=== PATIENT | male | born 1985 | race Hispanic/Latino ===

== ENCOUNTER 2017-04-16 19:52 | Inpatient (IN) | payer OTHER ==
[~2017-04-16] VITALS: Ht 165.1 cm; Wt 81.3 kg
[2017-04-16 19:57] VITALS: BP 152/114; PULSE 139; RESP 18; O2SAT 98
[2017-04-16] MEDS ORDERED: 0.9% Sodium Chloride 1,000 ML IV ONE (23:36)
--- NOTE | 2017-04-16 23:54 | ED.REPORT ---
HPI-General Illness Date of Service Apr 16, 2017 ED Provider: Doc,Ed MD This is a 31-year-old Beninese-speaking male with no known past medical history who presented to the emergency department for left neck swelling. Swellings been going on for the last 3 days and has been growing in size and is painful. Patient notes associated headaches, sweating and fever. He denies any difficulty with breathing or swallowing. He does have pain with opening his mouth. He has not had anything like this in the past. Denies any history of MRSA. Swelling has not drained. He mentions he is up-to-date on her vaccinations. He does mention to taking some [place] antibiotics, which she is unfamiliar with the name for the last 2 days. He feels like that has helped with the swelling and pain. Nursing Notes Stated Complaint: LUMP ON LEFT CHECK Chief Complaint: General Complaint Nursing Notes Reviewed: Yes Allergies: Coded Allergies: No Known Allergies (Unverified Allergy, Unknown, 04/16/17) General Time Seen by MD: 22:45 Chief Complaint Other (Left neck swelling) Past Medical History Past Medical History none reported Past Surgical History none reported Smoking History Current Every Day Smoker Social History Alcohol Use: Denies alcohol use Drug Use: Denies drug use Ambulatory Status Independent Review of Systems Full Review of Systems Constitutional: Reports: Fever, Denies: Chills Ears / Nose / Throat: Denies: Earache bilateral, Hearing loss bilateral, Sinus problem, Sore throat, Throat pain, Throat swelling, Toothache Respiratory: Denies: Shortness of breath Cardiovascular: Denies: Chest pain GI: Denies: Abdominal pain Skin: Reports Diaphoresis Neurologic: Reports: Headache Complete sys rev & neg: except as marked. Physical Exam Vital Signs Vital Signs Date Time Temp Pulse Resp B/P Pulse Ox O2 Delivery O2 Flow Rate FiO2 04/17/17 03:28 36.9 104 20 147/96 98 Room Air 04/17/17 02:03 39.2 118 24 138/104 99 Room Air 04/16/17 19:57 37.4 139 18 152/114 98 Room Air Initial VS: Reviewed General/Constitutional: Well-developed, Well-nourished Head / Eyes: Atraumatic, Normocephalic ENT: Mucous membranes moist, Conjunctiva normal, No scleral icterus Neurologic: Alert, Oriented, Nonfocal Psychiatric: Mood/affect normal, Behavior normal, Normal thought content General/Constitutional: Awake, Alert, No acute distress, Cooperative ENT: Atraumatic, Airway patent, Mucous membranes moist, Pharynx NL, No peritonsillar abscess Dental / Gums: Negative: Gum swelling, Gum tenderness Trismus associated with left side Neck: No midline vertebral tend, Thyroid NL Soft Tissue Neck: Positive: Saliva gland swollen L..., Swelling present... Large lateral left swelling of neck appears to be parotid with significant tenderness to parotid and small palpable stone within it. Swelling is about 6 inches in diameter. Patient has decreased range of motion with turning head to the left. No submental or submandibular lymphadenopathy noted. Respiratory / Chest: Atraumatic, Breath sounds NL, Breath sounds = bilat, No respiratory distress Cardiovascular: Regular rhythm, Heart sounds NL, No murmurs Heart Rate / Rhythm: Positive: Tachycardia Abdomen: Atraumatic, Soft, Non-tender, No guarding Skin: Color NL, No rash, Warm Color / Condition: Positive: Diaphoresis present Interpretation & Diagnostics Soft tissue neck CT CONCLUSION: 3.6 cm complex cystic mass just beneath the left sternocleidomastoid muscle with extensive surrounding inflammation. I would be concerned that this represents possibly multiple abscesses. This appears separate from the parotid gland and the left submandibular gland. Lab Results Interpretation Result Diagram: 04/17/17 0017 04/17/17 0017 Test 04/17/17 00:17 White Blood Count 17.5th/mm3 (3.8-10.1) Red Blood Count 5.47mil/mm3 (4.40-5.80) Hemoglobin 15.9g/dL (13.8-17.2) Hematocrit 45.0% (41.0-50.0) Mean Corpuscular Volume 82.3fL (81-100) Mean Corpuscular Hemoglobin 29.1pg (27.0-35.0) Mean Corpuscular Hemoglobin Concent 35.3% (32.0-37.0) Red Cell Distribution Width 12.4% (12.3-15.4) Platelet Count 313bil/L (150-400) Neutrophils (%) (Auto) 81.2% (40-74) Lymphocytes (%) (Auto) 10.3% (14-46) Monocytes (%) (Auto) 7.7% (4-12) Eosinophils (%) (Auto) 0.2% (0-5) Basophils (%) (Auto) 0.3% (0-3) Sodium Level 136mEq/L (134-144) Potassium Level 4.2mEq/L (3.5-5.2) Chloride Level 96mEq/L (97-108) Carbon Dioxide Level 22mmol/L (18-29) Blood Urea Nitrogen 9mg/dL (6-20) Creatinine 0.55mg/dL (0.76-1.27) Estimat Glomerular Filtration Rate 186mL/min (>59) Glucose Level 235mg/dL (60-99) Calcium Level 10.1mg/dL (8.5-10.1) Total Bilirubin 0.5mg/dL (0.0-1.2) Aspartate Amino Transf (AST/SGOT) 35U/L (0-50) Alanine Aminotransferase (ALT/SGPT) 55U/L (0-44) Alkaline Phosphatase 120U/L (25-150) Total Protein 9.3g/dL (6.4-8.4) Albumin 4.3g/dL (3.4-5.0) Procalcitonin 0.07ng/mL (0.00-0.08) Hold [place] Top Tube Received (Received) Re-Eval/Medical Decision Med Decision/Clinical Course 31-year-old presents with a spontaneous eruption of a large abscess in the left neck, under and associated with the sternocleidomastoid. Denies IV drug use or any trauma to account for this. No obvious odontogenic source. Consulted with ENT will see him this morning for drainage. Begun with IV antibiotics and admitted to the medicine service. Airway intact at this point, with no swallowing difficulty or voiced difficulty or breathing difficulty, but he does have trismus. This is a 31-year-old male with no known past medical history who presents to the emergency department for left neck swelling. This been going on for 3 days has been increasing in size. Patient does note of having subjective fevers, headaches and diaphoresis. On exam patient does have trismus, significant left sided swelling of the neck, which appears to be associated with the parotid gland. A small stone is palpated within the left parotid with significant tenderness cause to the patient. He did develop a fever of 39.2 C while here. CBC is remarkable for a WBC of 17.5. Soft tissue neck CT shows 3.6 cm cystic mass under the left SCM. given the location of the abscess and patient being septic, this requires admission to the hospital. Discussed with ENT, Dr. Gallardo, who plans to see the patient in the morning. Blood cultures drawn. Patient was given 2L of normal saline, IV cefazolin and clindamycin and ibuprofen. Consultation #1: Referral / Consult Name: Eduardo Gallardo MD Consulted With: ENT Call Returned at: 03:25 Hot Mix Operator: Agrees with plan Note: Spoke with ENT who agreed to see patient in the morning. Consultation #2: Referral / Consult Name: Garrick Hassan MD Consulted With: Hospitalist Call Returned at: 03:53 Hot Mix Operator: Accepts admit Note: Discussed with Dr. Hassan who acceps admit Counseled Regarding: Diagnosis, Lab results, Need for admission Discharge & Departure Primary Impression: Neck abscess Disposition: ADMITTED TO HOSPITAL Discharge Condition All VS Reviewed: Yes Condition: Stable Referrals: NOPCP (PCP) Garrick Estrada DO Apr 16, 2017 23:08 Kartik Bean MD Apr 17, 2017 07:12
[2017-04-17] VITALS (15 sets, daily range): BP systolic 138–162; BP diastolic 92–109; PULSE 95–126; RESP 15–24; O2SAT 96–100
[2017-04-17 00:33] LABS: BASOPHILS % (AUTO) 0.3 % (0-3); EOSINOPHILS % (AUTO) 0.2 % (0-5); MONOCYTES % (AUTO) 7.7 % (4-12); Mean Corpuscular Hemoglobin 29.1 pg (27.0-35.0); Mean Corpuscular Volume 82.3 fL (81-100); NEUTROPHILS % (AUTO) 81.2 % (40-74); Platelet Count 313 bil/L (150-400)
[2017-04-17] MEDS ORDERED: 0.9% Sodium Chloride 1,000 ML IV ONE (02:10)
[2017-04-17] MEDS ORDERED: CeFAZolin Inj 2 GM in IV Premix 1 EACH IV ONE (02:20)
[2017-04-17] MEDS ORDERED: Clindamycin Inj 900 MG in IV Premix 1 EACH IV ONE (02:20)
[2017-04-17] MEDS ORDERED: 0.9% Sodium Chloride 1,000 ML IV SCH (03:58)
[2017-04-17] MEDS ORDERED: Lactated Ringer's 1,000 ML IV SCH ×2 (03:58→12:51)
[2017-04-17] MEDS ORDERED: Alum-Mag Hydrox-Simeth 30 mL Suspension PO PRN ×2 (04:00→12:20)
[2017-04-17] MEDS ORDERED: Ondansetron 2 mg/mL 2 mL Inj IVPUSH PRN ×3 (04:00→12:55)
[2017-04-17] MEDS ORDERED: Polyethylene Glycol (PEG) 17 Gm Powder PO PRN ×2 (04:00→12:20)
--- NOTE | 2017-04-17 06:07 | NUR ---
Admit note Pt arrived to unit at 0430 from ED via a stretcher. transfer out of stretch with SBA to room with steady gait. Alert, oriented, and able to make needs known. Pt was with his cousin upon arrival and gave consent for his cousin to be there with him in the room. Denies N/V/D, pain, resp distress and/or SOB. Pleasant and cooperative with care. No behavioral or safety issue noted. Left neck swollen intact with no skin tear or fluid draining in that area. pt NPO per orders. Care continues.
[2017-04-17] MEDS: Sodium Chloride LOK Flush 10 mL Syringe IVFLUSH SCH ×2 (07:55→18:00)
[2017-04-17] MEDS ORDERED: Piperacillin-Tazo 3.375 Gm Inj 3.375 GM in Dextrose 5% Minibag Plus 50 ML IV SCH (08:30)
--- NOTE | 2017-04-17 09:03 | DRSVH ---
PROCEDURE: CT NECK SOFT TISSUES WITH CONTRAST ([id number]) INDICATIONS: 31 year-old male with left neck swelling. TECHNIQUE: After the administration of intravenous contrast, 3.0 mm axial sections acquired from the sella to th e aortic arch. Additional oblique axial 3.0 mm sections acquired through the pharynx. 3 mm thick co mando reformats were generated. For radiation dose reduction, the following was used: automated exp osure control. COMPARISON: None. FINDINGS: Preliminary interpretation rendered by [facility]. Image quality: Excellent. Lymph nodes: On axial image 33, 3.9 x 3.5 x 3.5 cm solid and cystic mass lesion lies deep to the lef t sternocleidomastoid muscle, within station 2A of the left jugular chain lymph nodes. Several nearby left jugular chain homogeneously enhancing enlarged lymph nodes are also present, measuring up to 1. 3 cm short axis dimensions. Vessels: Visualized vasculature appears patent. Neck spaces: The oropharynx, nasopharynx, and pharynx demonstrate no mucosal lesions. There is asymm etric thickening of the left tonsillar pillar. The vocal cords, false vocal cords, pyriform sinuses, epiglottis, vallecula, and tongue base all appear normal. There is asymmetric inflammatory fat stra nding superficial to the left sternocleidomastoid muscle. Glands: The parotid and submandibular glands appear normal. Thyroid gland is normal in size and mor phology. Miscellaneous: Visualized brain and orbits appear normal. Lung apices appear clear. Superficial so ft tissues appear normal. Bones: No suspicious bony lesions. There is minimal left maxillary sinus mucosal thickening. Visuali zed mastoids appear clear. IMPRESSION: 1. 3.9 x 3.5 x 3.5 cm solid and cystic left neck mass lesion with significant surrounding inflammator y fat stranding, consistent with partially necrotic left jugular chain lymph node and developing absc ess. 2. Multiple additional enlarged nonnecrotic left jugular chain lymph nodes as well, presumably from i nfectious or inflammatory etiology. 3. Asymmetric enlargement of the left tonsillar pillar as well, without abscess formation. Dictated by: Cristino Bedoya M.D. on 04/17/2017 at 8:50 Approved by: Cristino Bedoya M.D. on 04/17/2017 at 9:01
[2017-04-17] MEDS: Clindamycin Inj 900 MG in IV Premix 1 EACH IV SCH ×2 (11:00→19:30)
--- NOTE | 2017-04-17 11:39 | NUR ---
Off Unit Patient off floor to PACU via stretcher. IV infusing.
--- NOTE | 2017-04-17 11:42 | PCM.HPANE ---
Patient Data Surgeon Admitting Provider:Garrick Hassan MD Attending Provider:Didier Marino Primary Care Physician:Myriam Other Provider: Reason for Visit Neck Abscess/Sepsis Ht/WT & BMI Height (Feet): 5 Height (Inches): 5 Weight (Kilograms): 75.000 Body Mass Index .00 Allergies Coded Allergies: No Known Allergies (Unverified Allergy, Unknown, 04/16/17) Past Anesthesia History Anesthesia History: Denies:: Abnormal Airway, Anesthesia Reactions, Difficult Intubation, Fam Anesthesia Reaction, Fam Malignant Hypertherm, Malignant Hyperthermia Diabetes History Hx Diabetes?: No MRSA MRSA: No Medications Hypertension Medication: No Home Meds Incl Beta Haja: No No Active Prescriptions or Reported Meds History History of ENT Problems?: No HEENT History: Positive for:: Dysphagia Denture Type: None Teeth Condition: Missing Teeth Other History/Comment L neck abscess, no stridor, no difficulty breathing, some difficulty now swallowing, some restricted mouth opening, CT scan with minimal airway effect. Hx of Heart Problems?: No Cardiovascular History: Denies:: AICD Abdominal Aortic Aneurism Atrial Fibrillation Cardiac Surgery Chest Pain Congestive Heart Failure Coronary Artery Disease Edema Heart Murmur Hypertension Irregular Heartbeat Pacemaker Peripheral Vascular Rheumatic Fever Thrombophlebitis Valvular Heart Disease Hx of Respiratory Problem?: No Respiratory History: Denies:: Asthma COPD Chest Surgery Cough Dyspnea Emphysema Hemoptysis Oxygen Administration Pneumonia Pulmonary Embolism Tuberculosis Use of C-PAP Machine Use of Inhalers / NEBS Hx Neurologic Problems?: No Neurological History: Denies:: Alzheimer's Disease CVA Dementia Dizziness Headaches Seizures Hx of GI Problems?: No Gastrointestinal History: Denies:: Cirrhosis Diverticulitis Gall Bladder Disease Gastroesphageal Reflux Gastrointestinal Bleeding Heartburn Hepatitis Hiatal Hernia Liver Disease Rectal Bleeding Hx of Problems?: No Genitourinary History: Denies:: HX of Hemodialysis Kidney Stones Urinary Tract Infection Male Hx: Denies:: Prostate Problems Scrotal Mass Testicular Surgery Skin History: Denies:: History Skin Disorders? Pressure Ulcers Hx Musculoskeletal Problems?: No Musculoskeletal History: Denies:: Back Injury Degenerative Joint Fibromyalgia Joint Replacement Musculoskeletal Trauma Myasthenia Gravis Osteoarthritis Rheumatoid Arthritis Systemic Lupus Hx of Psycho/Social Problems?: No Hx Surgeries?: Yes Other History/Comment [place] teeth Hx Any Other Health Problems?: No Other History: Denies:: Cancer Hospitalization History Blood Transfusions: Positive for:: Accept Blood Products? Denies:: Blood Transfuse Reaction Blood Transfusions Hx Diabetes: No Other Pertinent History: Had left [place] tooh removed six weeks ago Hx Alcohol Use: YesAlcoholic Drinks Per Day: depend on the mood, pt drinks up to six bottle of beer per reportHx Substance Use: No Smoking Status: Current Every Day Smoker Have You Smoked inLast 12 mo: YesApprox How Many Cigarettes/day: up to three singles per day Stop/Bang Treated for Sleep Apnea?: No Do You Have a CPAP Machine?: No S-Snoring: Do You Snore Loudly: No T-Tired: feel tired, fatigued: No O-Obsered: Observed not breath: No P-Blood Pressure: treated: No B- Body Mass Index > 35 kg/m2: No N- Neck Large Circumference: No G- Gender Male: Yes DUTCH Total Score: 1 DUTCH Risk Assessment: Low Risk, <3 Yes Risk Assessment Category Category 1A: Patient has history of documented sleep apnea, and HAS NOT received any narcotic, sedative or anesthesia administration during this stay. Category 1B: Patient has history of documented sleep apnea, and HAS received any narcotic , sedative or anesthesia administration during this stay Category 2: Patient has SUSPECTED Obstructive Sleep Apnea, and HAS received any narcotic , sedative or anesthesia administration during this stay. Category 3: Patient has SUSPECTED Obstructive Sleep Apnea and HAS NOT received narcotic, sedative or anesthesia administration during this stay. Category 4: Outpatient in Procedural Areas with known sleep apnea or who screen positive for High Risk via the STOP/BANG questionnaire. Exam Exam Vital Signs Vital Signs Date Time Temp Pulse Resp B/P Pulse Ox O2 Delivery O2 Flow Rate FiO2 04/17/17 08:51 36.9 98 18 153/101 98 04/17/17 04:30 36.7 95 17 143/92 98 Room Air 04/17/17 04:20 36.9 104 20 147/96 98 Room Air General Appearance: Alert, Oriented X3, Cooperative, No Acute Distress HEENT/AIRWAY: MP 3 Lungs: Clear to Auscultation, Normal Air Movement Heart: Exam Unremarkable, Regular Rate/Rhythm, Normal S1, Normal S2 Additional Information L neck mass effect, almost 3 finger breaths mouth opening, no stridor, cricoid palpable, not drooling handling secretions. Meds/Labs/Diagnostics Admission Meds Current Medications Sodium Chloride (Normal Saline) 1,000 ml @ 0 mls/hr Q0M ONCE IV Last administered on 04/17/17 00:20; Start 04/16/17 at 23:36; Stop 04/16/17 at 23:41; Status DC Ibuprofen 600 mg 600 mg ONCE ONCE PO Last administered on 04/17/17 02:14; Start 04/17/17 at 02:05; Stop 04/17/17 at 02:06; Status DC Sodium Chloride 1,000 ml @ 0 mls/hr Q0M ONCE IV Last administered on 04/17/17 02:14; Start 04/17/17 at 02:10; Stop 04/17/17 at 02:13; Status DC Cefazolin Sodium/ Dextrose 2 gm/ Premix 50 ml @ 100 mls/hr ONCE ONCE IV Last administered on 04/17/17 03:26; Start 04/17/17 at 02:20; Stop 04/17/17 at 02:49; Status DC Clindamycin Phosphate/ Dextrose 900 mg/ Premix 50 ml @ 100 mls/hr ONCE ONCE IV Last administered on 04/17/17 04:09; Start 04/17/17 at 02:20; Stop 04/17/17 at 02:49; Status DC Piperacillin Sod/ Tazobactam Sod 3.375 gm/Dextrose/ Water 50 ml @ 12.5 mls/hr Q8 IV Last administered on 04/17/17 08:28; Start 04/17/17 at 08:30 Lactated Ringer's (Lr) 1,000 ml @ 125 mls/hr Q8H IV Last administered on 04:56; Start 04/17/17 at 03:58 Labs Test 04/17/17 00:17 04/17/17 06:46 04/17/17 08:38 White Blood Count 17.5th/mm3 (3.8-10.1) Red Blood Count 5.47mil/mm3 (4.40-5.80) Hemoglobin 15.9g/dL (13.8-17.2) Hematocrit 45.0% (41.0-50.0) Mean Corpuscular Volume 82.3fL (81-100) Mean Corpuscular Hemoglobin 29.1pg (27.0-35.0) Mean Corpuscular Hemoglobin Concent 35.3% (32.0-37.0) Red Cell Distribution Width 12.4% (12.3-15.4) Platelet Count 313bil/L (150-400) Neutrophils (%) (Auto) 81.2% (40-74) Lymphocytes (%) (Auto) 10.3% (14-46) Monocytes (%) (Auto) 7.7% (4-12) Eosinophils (%) (Auto) 0.2% (0-5) Basophils (%) (Auto) 0.3% (0-3) Sodium Level 136mEq/L (134-144) Potassium Level 4.2mEq/L (3.5-5.2) Chloride Level 96mEq/L (97-108) Carbon Dioxide Level 22mmol/L (18-29) Blood Urea Nitrogen 9mg/dL (6-20) Creatinine 0.55mg/dL (0.76-1.27) Estimat Glomerular Filtration Rate 186mL/min (>59) Glucose Level 235mg/dL (60-99) Calcium Level 10.1mg/dL (8.5-10.1) Total Bilirubin 0.5mg/dL (0.0-1.2) Aspartate Amino Transf (AST/SGOT) 35U/L (0-50) Alanine Aminotransferase (ALT/SGPT) 55U/L (0-44) Alkaline Phosphatase 120U/L (25-150) Total Protein 9.3g/dL (6.4-8.4) Albumin 4.3g/dL (3.4-5.0) Procalcitonin 0.07ng/mL (0.00-0.08) Hold [place] Top Tube Received (Received) Lactic Acid Level 1.3mmol/L (0.4-2.0) Plan Impression Patient chart reviewed, patient interviewed and anesthestic plan with risks, benefits, and alternatives discussed, and informed consent obtained. ASA Physical Status: ASA2 Plus Emergency Anesthetic Support Modalities: [place] Scope, Fiberoptic Scope Bene/Risks/Altern/Consents: Yes HP Complete Prior to Induction: Yes Chema Verdugo MD Apr 17, 2017 11:42
[2017-04-17] MEDS ORDERED: Lactated Ringer's 1,000 ML IV ONE ×2 (11:56→12:42)
[2017-04-17] MEDS ORDERED: Lidocaine 1%-Epi 1:100,000 20 mL Inj INFILTRATE ONE (12:08)
[2017-04-17] MEDS ORDERED: Dextrose 5% 0.45% NaCl 1,000 ML IV SCH (12:20)
--- NOTE | 2017-04-17 12:33 | PCM.HPMED ---
Subjective Date of Service Apr 17, 2017 Primary Provider: Admitting Physician: Garrick Hassan MD Primary Care Physician: Myriam Attending Physician: Didier Marino Chief Complaint: left neck swelling and pain History of Present Illness: 31 year old Lithuanian-speaking male originally from [place] who denies any significant past medical history presents with about 4-5 days of left neck swelling and pain that has been acutely worse one day prior to presentation. He denies any trouble with breathing but feels that he is having more difficulty with swallowing since this morning. He reports pulling his left lower wisdom tooth about 6 weeks ago. Otherwise denies any recent ulcers, rash, sick contacts, travel, or exposure to rabbits, ticks or other wild animals. He does report some chills and fever but denies any night-sweats and denies any recent weight change. He says he is not sexually active. In the ED ENT was consulted and patient received a dose of Clindamycin and Cefazolin. Review of Systems: Constitutional: Negative, except as otherwise mentioned in the history above. Ophthalmologic: Negative, except as otherwise mentioned in the history above. Cardiovascular: Negative, except as otherwise mentioned in the history above. Respiratory: Negative, except as otherwise mentioned in the history above. Gastrointestinal: Negative, except as otherwise mentioned in the history above. Genitourinary: Negative, except as otherwise mentioned in the history above. Musculoskeletal: Negative, except as otherwise mentioned in the history above. Neurological: Negative, except as otherwise mentioned in the history above. Psychiatric: Negative, except as otherwise mentioned in the history above. Hematologic/Lymphatic: Negative, except as otherwise mentioned in the history above. Allergic/Immunologic: Negative, except as otherwise mentioned in the history above. Allergies Coded Allergies: No Known Allergies (Unverified Allergy, Unknown, 04/16/17) Home Medications None Exam Vital Signs & I/O Vital Sign- Last 8 Hours Date Time Temp Pulse Resp B/P Pulse Ox O2 Delivery O2 Flow Rate FiO2 04/17/17 08:51 36.9 98 18 153/101 98 Intake and Output- Last 8 Hour 04/17/17 Cumulative From/Thru 07:00 04/16/17 19:57 - 04/17/17 05:55 Intake Total 1143 ml 1143 ml Output Total 300 ml 300 ml Balance 843 ml 843 ml Intake Oral 0 ml 0 ml IV Total 1143 ml 1143 ml Output Urine Total 300 ml 300 ml # Bowel Movements 0 0 Lab & Micro Results Laboratory Tests Test 04/17/17 00:17 04/17/17 06:46 04/17/17 08:38 White Blood Count 17.5th/mm3 (3.8-10.1) Red Blood Count 5.47mil/mm3 (4.40-5.80) Hemoglobin 15.9g/dL (13.8-17.2) Hematocrit 45.0% (41.0-50.0) Mean Corpuscular Volume 82.3fL (81-100) Mean Corpuscular Hemoglobin 29.1pg (27.0-35.0) Mean Corpuscular Hemoglobin Concent 35.3% (32.0-37.0) Red Cell Distribution Width 12.4% (12.3-15.4) Platelet Count 313bil/L (150-400) Neutrophils (%) (Auto) 81.2% (40-74) Lymphocytes (%) (Auto) 10.3% (14-46) Monocytes (%) (Auto) 7.7% (4-12) Eosinophils (%) (Auto) 0.2% (0-5) Basophils (%) (Auto) 0.3% (0-3) Sodium Level 136mEq/L (134-144) Potassium Level 4.2mEq/L (3.5-5.2) Chloride Level 96mEq/L (97-108) Carbon Dioxide Level 22mmol/L (18-29) Blood Urea Nitrogen 9mg/dL (6-20) Creatinine 0.55mg/dL (0.76-1.27) Estimat Glomerular Filtration Rate 186mL/min (>59) Glucose Level 235mg/dL (60-99) Lactic Acid Level 2.1mmol/L (0.4-2.0) 1.2mmol/L (0.4-2.0) 1.3mmol/L (0.4-2.0) Calcium Level 10.1mg/dL (8.5-10.1) Total Bilirubin 0.5mg/dL (0.0-1.2) Aspartate Amino Transf (AST/SGOT) 35U/L (0-50) Alanine Aminotransferase (ALT/SGPT) 55U/L (0-44) Alkaline Phosphatase 120U/L (25-150) Total Protein 9.3g/dL (6.4-8.4) Albumin 4.3g/dL (3.4-5.0) Procalcitonin 0.07ng/mL (0.00-0.08) Hold Hoyos Top Tube Received (Received) Microbiology 04/17/17 Blood Culture, Received Pending Result Diagram: 04/17/171604/17/1716 PMH Denies any significant past medical history Family History Denies any family history of diabetes, heart disease, or cancer Social History Hx Alcohol Use: Yes (occassionally) Alcoholic Drinks Per Day: depend on the mood, pt drinks up to six bottle of beer per report Hx Substance Use: No Smoking Status: Current Every Day Smoker (2-3 cigarretts per day) Exam Vital Signs Vital Sign - Last Date Time Temp Pulse Resp B/P Pulse Ox O2 Delivery O2 Flow Rate FiO2 04/17/17 08:51 36.9 98 18 153/101 98 04/17/17 04:30 Room Air Intake and Output 04/16/17 04/16/17 04/17/17 Cumulative From/Thru 15:00 23:00 07:00 04/16/17 19:57 - 04/17/17 05:55 Intake Total 1143 ml 1143 ml Output Total 300 ml 300 ml Balance 843 ml 843 ml Intake Oral 0 ml 0 ml IV Total 1143 ml 1143 ml Output Urine Total 300 ml 300 ml # Bowel Movements 0 0 General: Alert, Oriented X3, Cooperative, No Acute Distress Head: Normal Eyes: PERRLA, EOMI, Scleral Anicteric Nose: Mucous Membr Moist/[place] Mouth: Mucous Membr Moist/[place] Neck: Supple, Tenderness, Other (signifiant swelling and tenderness on the left side of the neck) Chest & Lungs: Chest Wall Normal, Clear to auscultation & percussion Cardiovascular: Regular Rate/Rhythm Pulses: NL carotid, radial, femoral, DP, PT Abdomen: Non-tender, Non-distended, Normoactive bowel tones, Soft Extremities: No cyanosis/clubbing/edma bilat Skin: Other (no significant ulcer/rash) Neurological: Grossly Neurologically Intact, Cranial Nerves 2-12 Intact, Normal Speech Lab and Diagnostics Result Diagram: 04/17/171604/17/1716 X-Rays, CTs and MRIs Date of Service: 04/17/17 001 PROCEDURE: CT NECK SOFT TISSUES WITH CONTRAST ([id number]) IMPRESSION: 1. 3.9 x 3.5 x 3.5 cm solid and cystic left neck mass lesion with significant surrounding inflammatory fat stranding, consistent with partially necrotic left jugular chain lymph node and developing abscess. 2. Multiple additional enlarged nonnecrotic left jugular chain lymph nodes as well, presumably from infectious or inflammatory etiology. 3. Asymmetric enlargement of the left tonsillar pillar as well, without abscess formation. Dictated by: Cristino Bedoya M.D. on 04/17/2017 at 8:50 Approved by: Cristino Bedoya M.D. on 04/17/2017 at 9:01 Assessment & Plan 31 year generally healthy male who is post left lower wisdom tooth extraction about 6 weeks ago presents with somewhat acute onset of left neck swelling and tenderness with imaging suggestive of developing neck abscess # Acute left neck abscess, present on admission. Ongoing - Presumably as a complication of somewhat recent tooth extraction - Appreciate ENT consult. Await official recommendations but tentative plan seems to be for OR later today - Discussed with ID consult - Check MRSA screen and ASO titer - Followup pending cultures - IV Zosyn and Clinda for now per discussion with ID - Continue with supportive care including IVF and pain control with IV Morphine prn # Acute sepsis, present on admission - Met criteria with leukocytosis (17.5), Fever (39.2), Tachycardia (139) with source the neck abscess. - Continue with IVF and Abx as noted above # Acute mild lactic acidosis. present on admission - Resolved with IVF. - Followup Expected length of hospital stay is greater than 2 midnights and likely 2-4 days GI Prophylaxis: Not indicated VTE Prophylaxis: Sub-Q Heparin (Unfractionated) VTE Mechanical Devices: Intermittant Pneumatic CD Resuscitation Status: CPR: Attempt Resuscitation (discussed and verified with patient) Time spent 65 min Didier Marino Apr 17, 2017 12:33
[2017-04-17] MEDS ORDERED: Lactated Ringer's 500 ML IV PRN (12:51)
[2017-04-17] MEDS ORDERED: HYDROmorphone 1 mg/mL Inj IVPUSH PRN (12:55)
[2017-04-17] MEDS ORDERED: Phenylephrine 10,000 mCg/mL Inj IVPUSH PRN (12:55)
[2017-04-17] MEDS ORDERED: MetoCLOpramide 5 mg/mL 2 mL Inj IVPUSH PRN (12:55)
[2017-04-17] MEDS ORDERED: EPHEDrine Sulfate 50 mg/mL Inj IVPUSH PRN (12:55)
[2017-04-17] MEDS ORDERED: fentaNYL-PF 50 mCg/mL 2 mL Inj IVPUSH PRN (12:55)
--- NOTE | 2017-04-17 13:06 | OP ---
[address] [address] OPERATIVE REPORT PATIENT: IZA DEL CASTILLO : 1985 MR#: [id number] ADMIT: 04/17/2017 JOB ID: [id number] DATE OF SURGERY: SURGEON: Eduardo Gallardo MD PREOPERATIVE DIAGNOSIS(ES): Left deep neck abscess. POSTOPERATIVE DIAGNOSIS(ES): Left deep neck abscess. PROCEDURE: Incision and drainage. HISTORY AND INDICATIONS: A 31-year-old gentleman, dental extraction several weeks previously. Had left upper neck swelling and tenderness at the time. Over the last several days, has had progressive swelling, pain, trismus, and fever. Presented to the emergency department. CT scan showed a multiloculated deep neck abscess on the left. PROCEDURE AND FINDINGS: Patient was taken to the operating room, placed in supine position on the operating table. General endotracheal anesthesia induced. The head was turned to the right. The left neck was prepped and draped in sterile fashion. The planned incision site was injected with 2% lidocaine, 1:100,000 epinephrine. The incision was made over the lower portion of the prominent swelling, staying well below the angle of the mandible which is not palpable. Dissection continues through edematous subcutaneous fat and through the platysma. The anterior border of the sternocleidomastoid was identified and carefully dissected free of the surrounding edematous tissues. Then, with a very careful combination of blunt dissection and finger dissection, the dissection continues medially to the superior attachment of sternocleidomastoid and up onto the medial surface of the mandible, encountering multiple loculations of frankly purulent material. Cultures are taken. Once all the loculations are adequately opened, copious irrigation is undertaken with Betadine and saline. Quarter-inch Raymundo drains were then inserted, one deep to the SCM, the other deep to the mandible. These were secured to the skin with 3-0 nylon. The wound is loosely closed with interrupted 3-0 nylon suture. An absorbent dressing is applied. The patient is awakened and extubated in the operating room, and returned to the recovery room in a stable condition. ESTIMATED BLOOD LOSS: Less than 20 cc. PATHOLOGIC SPECIMENS: Cultures are sent.
--- NOTE | 2017-04-17 13:10 | HP ---
[address] [address] HISTORY AND PHYSICAL PATIENT: IZA DEL CASTILLO : 1985 MR#: [id number] ADMIT: 04/17/2017 JOB ID: [id number] HISTORY: The patient is a 31-year-old gentleman who several weeks ago he had an infected left maxillary molar extracted. At that time, he had some swelling in the left neck. Over the last several days, he has developed progressive pain, swelling, dysphagia, trismus and fevers; the swelling being mainly in the left upper neck. Presented to the emergency department, was scanned and noted to have a multiloculated abscess deep to the sternocleidomastoid muscle on the left side. PHYSICAL EXAMINATION: On examination in the hospital bed, the patient is awake, alert, quite uncomfortable. He has marked swelling over the left parotid mandible and upper neck area. He has moderate trismus. The ears and nose are unremarkable. Oropharyngeal examination shows no asymmetry and no edema of the palate. Again the neck examination shows markedly indurated painful left upper neck extending over the mandible. Chest is clear to auscultation and percussion. Cardiovascular exam is regular rate and rhythm without murmurs, gallops, rubs. ASSESSMENT: Multiloculated deep neck abscess left, probably related to infected dental tooth that has been extracted. PLAN: Discussed surgical drainage with the patient. He understands the risks of the procedure which include, but are not limited to anesthetic reaction, bleeding, infection and injury to the large blood vessels or nerves, resulting in , temporary or permanent disability. Understands the possible need for tracheotomy. His questions answered. He understands and chooses to proceed.
--- NOTE | 2017-04-17 13:18 | PCM.ANEP1 ---
Post Anesthesia PACU Phase 1 Assessment Vital Signs Vital Signs Date Time Temp Pulse Resp B/P Pulse Ox O2 Delivery O2 Flow Rate FiO2 04/17/17 08:51 36.9 98 18 153/101 98 Anesthetic Administered: GA Level of Alertness: Awake, talking Pain: Yes (RN aware) Nausea or Vomiting: No CV Function & Hydration Stable: Yes Airway Device: Oxygen Delivery: Simple Mask Lungs: Clear to Auscultation, Normal Air Movement PACU Phase 2 Assessment Complications: No Follow up Care: No Patient Instructions Provided: N/A Comments Still tachycardic, will give dose of IV tylenol for sepsis (fevering in OR). Chema Verdugo MD Apr 17, 2017 13:18
[2017-04-17] MEDS ORDERED: Acetaminophen IV 1,000 MG in IV Premix 1 EACH IV ONE (13:20)
--- NOTE | 2017-04-17 14:15 | NUR ---
Back on Unit Patient back on floor from PACU in stable condition. Reports slight pain and nausea. Pain and nausea medications given in PACU. Increased BP and HR. Swallow eval completed. Patient on Dysphagia Mechanical Soft thin liquid diet. Patient up to BR. Dressing CDI. Call light and tray table within reach. Will continue to monitor patient hourly.
--- NOTE | 2017-04-17 15:26 | NUR ---
Evaluation completed. Please go to "Notes" then click on "Assessments and Notes" (bottom left corner of screen). Then select appropriate discipline tab on top of screen.
[2017-04-17] MEDS ORDERED: Glucose 40% Oral Gel 15 Gm Tube PO SCH (16:35)
[2017-04-17] MEDS ORDERED: Dextrose 10% 250 ML IV PRN (16:40)
[2017-04-17] MEDS ORDERED: 0.9% Sodium Chloride 100 ML ONE (17:30)
[2017-04-17] MEDS: Piperacillin-Tazo 3.375 Gm Inj 3.375 GM in Dextrose 5% Minibag Plus 50 ML IV SCH (17:59)
[2017-04-17] MEDS ORDERED: Dexamethasone 4 mg/mL Inj IV ONE (18:00)
[2017-04-17] MEDS: Insulin LISPRO Low-Dose Scale SUBQ PRN ×2 (18:05→22:06)
[2017-04-17] MEDS ORDERED: Insulin Human REGular 300 Unit/3 mL Inj SUBQ SCH (20:30)
[2017-04-18] MEDS: Sodium Chloride LOK Flush 10 mL Syringe IVFLUSH SCH ×3 (00:30→16:30)
[2017-04-18] MEDS: Piperacillin-Tazo 3.375 Gm Inj 3.375 GM in Dextrose 5% Minibag Plus 50 ML IV SCH ×2 (01:09→09:17)
[2017-04-18 01:18] VITALS: BP 138/93; PULSE 98; RESP 17; O2SAT 96
[2017-04-18] MEDS: Clindamycin Inj 900 MG in IV Premix 1 EACH IV SCH ×2 (03:13→13:56)
--- NOTE | 2017-04-18 03:47 | NUR ---
Post op day 1 Pt A&OX3. Denies N/V/D. No c/o pain since the beginning of this shift. Able to ambulate with steady gait to bathroom with no safety issue independently. dressing on neck area is C/D/I with no drainage and direct observation by this LN. Pt with no concerns so far. Tolerating IV antibiotic with no adverse side effect noted or reported. Will continue to monitor.
[2017-04-18 05:42] LABS: BASOPHILS % (AUTO) 0.1 % (0-3); EOSINOPHILS % (AUTO) 0 % (0-5); MONOCYTES % (AUTO) 4.4 % (4-12); Mean Corpuscular Hemoglobin 28.3 pg (27.0-35.0); Mean Corpuscular Volume 83.8 fL (81-100); NEUTROPHILS % (AUTO) 89.8 % (40-74); Platelet Count 272 bil/L (150-400)
[2017-04-18] MEDS ORDERED: Dexamethasone 4 mg/mL Inj IV ONE (06:00)
[2017-04-18 06:15] VITALS: BP 149/102; PULSE 84; RESP 18; O2SAT 92
[2017-04-18] MEDS ORDERED: HepLOK Flush 100 unit/mL 5 mL Inj IVFLUSH SCH (08:30)
[2017-04-18] MEDS: Heparin 5,000 Unit/mL Inj SUBQ SCH ×2 (09:17→18:22)
[2017-04-18] MEDS: Dextrose 5% 0.45% NaCl 1,000 ML IV SCH ×3 (09:30→09:54)
[2017-04-18 09:42] VITALS: BP 140/88; PULSE 97; RESP 16; O2SAT 97
--- NOTE | 2017-04-18 10:37 | NUR ---
BG BG with morning lab 316; post meal 376. Encouraged pt to drink water vs juice, watch his starch/carb consumption, encouraged daily exercised all to which pt was very receptive to and asking appropriate questions regarding the matter. Encouraged BG control for healing of wound to which pt was very receptive to. Made mention possible diabetic teaching consult and possible A1C to MD in rounds; no new orders. Will continue to monitor with frequent rounds.
[2017-04-18] MEDS: Insulin LISPRO Low-Dose Scale SUBQ PRN ×3 (10:47→22:11)
--- NOTE | 2017-04-18 10:53 | NUR ---
[place] Diabetic Booklet Pt given [place] Diabetic teaching booklet today; encouraged to read through and to ask questions.
[2017-04-18 12:16] VITALS: BP 142/91; PULSE 91; RESP 16; O2SAT 98
[2017-04-18] MEDS ORDERED: Clindamycin Inj 900 MG in IV Premix 1 EACH IV SCH (13:30)
--- NOTE | 2017-04-18 13:36 | PROG NOTE ---
[address] [address] PROGRESS NOTE PATIENT: IZA DEL CASTILLO : 1985 MR#: [id number] ADMIT: 04/17/2017 JOB ID: [id number] DATE: HISTORY: Patient underwent uneventful drainage of deep left neck abscess yesterday. He has defervesced. His pain has improved dramatically. He is swallowing without difficulty. He has been noted to be running significantly elevated blood sugar levels. No prior history of diabetes. EXAMINATION: On examination, his vital signs are stable. He is afebrile. His neck wound is patent. The drains are in place. The edema and cellulitis of the left neck and face have improved significantly overnight. His trismus is resolved. ASSESSMENT: 1. Doing well following drainage of left neck abscess. 2. Significantly elevated blood sugar levels. PLAN: Drains will stay until Wednesday. If the patient has been discharged, we will see him in the office on that day for drain removal. He will be discharged when felt appropriate by the hospitalist based on control of his blood sugar problem. These issues have been reviewed with the patient. He understands the plan of treatment. He is appreciative of the care he has received.
--- NOTE | 2017-04-18 13:41 | PCM.PNMED ---
Subjective Date of Service Apr 18, 2017 Subjective says feeling better than yesterday. denies any new issues/complaints Exam Vital Signs Vital Sign - Last Date Time Temp Pulse Resp B/P Pulse Ox O2 Delivery O2 Flow Rate FiO2 04/18/17 12:16 36.7 91 16 142/91 98 Room Air 04/17/17 17:09 2.00 Intake and Output 04/17/17 04/17/17 04/18/17 Cumulative From/Thru 15:00 23:00 07:00 04/16/17 19:57 - 04/18/17 04:30 Intake Total 2707 ml 800 ml 307 ml 4957 ml Output Total 20 ml 2550 ml 2870 ml Balance 2687 ml -1750 ml 307 ml 2087 ml Intake Oral 800 ml 800 ml IV Total 2707 ml 307 ml 4157 ml Output Urine Total 2550 ml 2850 ml Estimated Blood Loss 20 ml 20 ml # Bowel Movements 0 0 Exam General: Alert, No Acute Distress Head: Normal Eyes: Scleral Anicteric Nose: Mucous Membr Moist/[place] Mouth: Mucous Membr Moist/[place] Neck: Supple, Tenderness, dressing in place. Chest & Lungs: Chest Wall Normal, Clear to auscultation bilat Cardiovascular: Regular Rate/Rhythm Pulses: NL carotid, radial, femoral, DP, PT Abdomen: Non-tender, Non-distended, Normoactive bowel tones, Soft Extremities: No cyanosis/clubbing/edema bilat Skin: Other (no significant ulcer/rash) Neurological: Grossly Neurologically Intact, Normal Speech IVs and Medications Medications Reviewed: Medications were reviewed in detail Lab and Diagnostics Result Diagram: 04/18/17 0515 04/18/17 0515 X-Rays, CTs and MRIs Date of Service: 04/17/17 0015 PROCEDURE: CT NECK SOFT TISSUES WITH CONTRAST ([id number]) IMPRESSION: 1. 3.9 x 3.5 x 3.5 cm solid and cystic left neck mass lesion with significant surrounding inflammatory fat stranding, consistent with partially necrotic left jugular chain lymph node and developing abscess. 2. Multiple additional enlarged nonnecrotic left jugular chain lymph nodes as well, presumably from infectious or inflammatory etiology. 3. Asymmetric enlargement of the left tonsillar pillar as well, without abscess formation. Dictated by: Cristino Bedoya M.D. on 04/17/2017 at 8:50 Approved by: Cristino Bedoya M.D. on 04/17/2017 at 9:01 Additional Diagnostics SURGEON: Eduardo Gallardo MD PREOPERATIVE DIAGNOSIS(ES): Left deep neck abscess. POSTOPERATIVE DIAGNOSIS(ES): Left deep neck abscess. PROCEDURE: Incision and drainage. ESTIMATED BLOOD LOSS: Less than 20 cc. PATHOLOGIC SPECIMENS: Cultures are sent. Eduardo Gallardo MD 04/17/17 1249 Assessment & Plan 31 year generally healthy male who is post left lower wisdom tooth extraction about 6 weeks ago presents with somewhat acute onset of left neck swelling and tenderness with imaging suggestive of developing neck abscess # Acute left neck abscess, present on admission. - Presumably as a complication of tooth extraction about 4 weeks ago - Post incision and drainage of abscess by ENT on 04/17/17 - Appreciate ENT consult. Will followup with recs - Followup pending cultures which seem to be growing Staph - ASO titer negative - Initially on IV Zosyn and Clinda but will change to IV Vanco given preliminary cultures showing possible Staph - Continue with supportive care including IVF and pain control with IV Morphine prn - ID consult in AM when available. # Acute sepsis, present on admission - Met criteria with leukocytosis (17.5), Fever (39.2), Tachycardia (139) with source the neck abscess. - Continue with IVF and Abx as noted above # Acute mild lactic acidosis. present on admission - Resolved with IVF. # Acute leukocytosis. present on admission, ongoing - Plan as noted above # Acute hyperglycemia. Present on admission. Ongoing - Initially suspected reactive to stress and infection. Now likely due to Decadron that was given on 04/17/17 - Followup pending HgA1C - Continue with ISS for possible underlying undiagnosed diabetes Dispo: 2-3 days GI Prophylaxis: Not indicated VTE Prophylaxis: Sub-Q Heparin (Unfractionated) VTE Mechanical Devices: Intermittant Pneumatic CD Resuscitation Status: CPR: Attempt Resuscitation (discussed and verified with patient) Didier Marino Apr 18, 2017 13:41
[2017-04-18] MEDS ORDERED: Vancomycin Dose per Pharmacist XX SCH (13:45)
[2017-04-18] MEDS ORDERED: 0.9% Sodium Chloride 100 ML ONE (13:48)
[2017-04-18] MEDS ORDERED: Vancomycin Inj 1,500 MG in 0.9% Sodium Chloride 500 ML IV ONE (14:00)
--- NOTE | 2017-04-18 14:17 | PCM.CONPHA ---
Subjective left neck swelling and pain Objective Vital Signs Date Time Temp Pulse Resp B/P Pulse Ox O2 Delivery O2 Flow Rate FiO2 04/18/17 12:16 36.7 91 16 142/91 98 Room Air 04/18/17 09:42 36.6 97 16 140/88 97 Room Air 04/18/17 06:15 36.4 84 18 149/102 92 Room Air 04/18/17 01:18 36.6 98 17 138/93 96 Room Air 04/17/17 21:20 36.7 112 20 144/94 96 Room Air 04/17/17 17:09 37.8 120 16 153/102 96 Nasal Cannula 2.00 04/17/17 14:18 36.6 121 18 150/99 98 Nasal Cannula 3.00 Intake and Output 04/16/17 04/17/17 04/18/17 00:00 00:00 00:00 Intake Total 4650 ml Output Total 2870 ml Balance 1780 ml Weight (Kilograms): 75.000 Height (Feet): 5 Height (Inches): 5 Test 04/17/17 00:17 04/17/17 06:46 04/17/17 08:38 04/18/17 05:15 Total Bilirubin 0.5mg/dL (0.0-1.2) Aspartate Amino Transf (AST/SGOT) 35U/L (0-50) Alanine Aminotransferase (ALT/SGPT) 55U/L (0-44) Alkaline Phosphatase 120U/L (25-150) Total Protein 9.3g/dL (6.4-8.4) Albumin 4.3g/dL (3.4-5.0) Procalcitonin 0.07ng/mL (0.00-0.08) Hold Hoyos Top Tube Received (Received) Streptozyme 24.0IU/mL (0.0-200.0) Lactic Acid Level 1.3mmol/L (0.4-2.0) White Blood Count 19.7th/mm3 (3.8-10.1) Red Blood Count 4.95mil/mm3 (4.40-5.80) Hemoglobin 14.0g/dL (13.8-17.2) Hematocrit 41.5% (41.0-50.0) Mean Corpuscular Volume 83.8fL (81-100) Mean Corpuscular Hemoglobin 28.3pg (27.0-35.0) Mean Corpuscular Hemoglobin Concent 33.7% (32.0-37.0) Red Cell Distribution Width 12.3% (12.3-15.4) Platelet Count 272bil/L (150-400) Neutrophils (%) (Auto) 89.8% (40-74) Lymphocytes (%) (Auto) 5.3% (14-46) Monocytes (%) (Auto) 4.4% (4-12) Eosinophils (%) (Auto) 0% (0-5) Basophils (%) (Auto) 0.1% (0-3) Sodium Level 135mEq/L (134-144) Potassium Level 4.3mEq/L (3.5-5.2) Chloride Level 97mEq/L (97-108) Carbon Dioxide Level 19mmol/L (18-29) Blood Urea Nitrogen 12mg/dL (6-20) Creatinine 0.53mg/dL (0.76-1.27) Estimat Glomerular Filtration Rate 194mL/min (>59) Glucose Level 316mg/dL (60-99) Calcium Level 9.7mg/dL (8.5-10.1) Assessment/Plan Assessment/Plan Patient is an 31 y.o. male receiving vancomycin for a neck abscess. Concurrent abx include: clinda. WBC count is 19.7 and the patient is afebrile. Patient is 75 kg, 65 inches tall with a SCr of 0.53 mg/dL-- estimated CrCl of 120mL/min. Based on patient parameters vancomycin will be dosed at 1000mg q8h with a target trough of 15-20 /mL. Trough will be drawn prior to the 4th dose on 05/17 @ 1300. Pharmacy will follow daily and adjust as appropriate. Thank you for the consult in the care of this patient. RTM PharmD Bird Kim Pharm.D Apr 18, 2017 14:17
--- NOTE | 2017-04-18 16:51 | NUR ---
Hallucination/IV Vanco Pt c/o hallucinating flies in the room landing on him and flying around the room; not dots, definitely flies in description and in both eyes, after IV Vanco fci done. BG check 358, per pt hallucinations resolving. Pt family members verified no home medications or food given to pt while visiting today. Pharmacy notified, could not verify side effect of Vanco. Md pastor paged, made aware. Care ongoing.
--- NOTE | 2017-04-18 17:58 | NUR ---
Social Work: Initial Assessment/Multidisciplinary Rounds D: EMR reviewed. Please see Initial Assessment linked to this note for more information. Pt is a 31 year old male admitted [place] with a readmit risk score of 1 for neck abscess, sepsis per H&P. Pt has no insurance or PCP at this time. RCA referral to be made tomorrow. Pt is agreeable RCA screening him for insurance. Pt discussed in multidisciplinary rounds, ID to consult tomorrow. Pt is likely to discharge home. COLLINS met with pt and cousins at bedside to conduct initial assessment with the assistance of video infirmary attendant. Pt was alert and oriented x3. SW explained role and wrote phone number on [employer] board. Pt lives at home with his cousin in [place]. Pt is independent with all ADLs at baseline. Pt is not working at this time. Pt uses no DME at baseline. Pt does not drive. Pt has no DPOA on file, declined information related to DPOA. Pt is likely to d/c home with cousin to transport via POV. SW will continue to follow. A: Pt who is independent at baseline and has the capacity for self-care. P: RCA referral to be made tomorrow. If pt is not eligible for insurance than he will have to pay out of pocket for medications. Pt anticipated to discharge home with cousin to transport via POV. SW will continue to follow for needs until time of discharge. ALL Lopez Addendum: 04/18/17 at 1803 by MICHAEL SANABRIA SS Amended: Links added.
--- NOTE | 2017-04-18 20:12 | NUR ---
INITIAL ASSESSMENT: During initial assessment Pt. is resting in bed. Swollen neck. Has Kerlix dressing around his neck with no fresh drainage on it. Post op day one after having a cyst drained from his neck. When asked about pain, he reports on the back of his head and neck rated at 5/10. Gave 650 mg of PO Tylenol and an ice bag to placed behind his head. No other c/o discomfort, A & O, VSS. On going care.
[2017-04-18 20:33] VITALS: BP 151/100; PULSE 85; RESP 19; O2SAT 98
[2017-04-18] MEDS: Vancomycin Inj 1,000 MG in IV Premix 1 EACH IV SCH (22:23)
--- NOTE | 2017-04-18 22:45 | NUR ---
HEAD ACHE: On reassessment at 2200 Pt. states his head ache is resolved after given Tylenol and a bag of ice to place behind his neck.
[2017-04-19] MEDS: Heparin 5,000 Unit/mL Inj SUBQ SCH ×3 (00:44→17:06)
[2017-04-19] MEDS: Sodium Chloride LOK Flush 10 mL Syringe IVFLUSH SCH ×3 (00:45→16:30)
[2017-04-19 05:29] LABS: BASOPHILS % (AUTO) 0.1 % (0-3); EOSINOPHILS % (AUTO) 0.1 % (0-5); MONOCYTES % (AUTO) 6.3 % (4-12); Mean Corpuscular Hemoglobin 28.5 pg (27.0-35.0); Mean Corpuscular Volume 85.3 fL (81-100); NEUTROPHILS % (AUTO) 75.2 % (40-74); Platelet Count 308 bil/L (150-400)
[2017-04-19 05:49] VITALS: BP 135/90; PULSE 77; RESP 16; O2SAT 99
[2017-04-19] MEDS: Vancomycin Inj 1,000 MG in IV Premix 1 EACH IV SCH (06:10)
--- NOTE | 2017-04-19 09:31 | PCM.PNMED ---
Subjective Date of Service Apr 19, 2017 Subjective Denies any new issues/complaints Exam Vital Signs Vital Sign - Last Date Time Temp Pulse Resp B/P Pulse Ox O2 Delivery O2 Flow Rate FiO2 04/19/17 05:49 36.8 77 16 135/90 99 Room Air 04/17/17 17:09 2.00 Intake and Output 04/18/17 04/18/17 04/19/17 Cumulative From/Thru 15:00 23:00 07:00 04/16/17 19:57 - 04/19/17 06:43 Intake Total 1200 ml 1624 ml 1500 ml 9281 ml Output Total 400 ml 1200 ml 1200 ml 5670 ml Balance 800 ml 424 ml 300 ml 3611 ml Intake Oral 1200 ml 994 ml 1100 ml 4094 ml IV Total 630 ml 400 ml 5187 ml Output Urine Total 400 ml 1200 ml 1200 ml 5650 ml Estimated Blood Loss 20 ml # Voids 3 3 # Bowel Movements 0 0 0 Exam General: Alert, No Acute Distress Head: Normal Eyes: Scleral Anicteric Nose: Mucous Membr Moist/[place] Mouth: Mucous Membr Moist/[place] Neck: Supple, Tenderness, dressing in place. Chest & Lungs: Chest Wall Normal, Clear to auscultation bilat Cardiovascular: Regular Rate/Rhythm Pulses: NL carotid, radial, femoral, DP, PT Abdomen: Non-tender, Non-distended, Normoactive bowel tones, Soft Extremities: No cyanosis/clubbing/edema bilat Skin: Other (no significant ulcer/rash) Neurological: Grossly Neurologically Intact, Normal Speech IVs and Medications Medications Reviewed: Medications were reviewed in detail Lab and Diagnostics Result Diagram: 04/19/1744404/19/17444 X-Rays, CTs and MRIs Date of Service: 04/17/17 0015 PROCEDURE: CT NECK SOFT TISSUES WITH CONTRAST ([id number]) IMPRESSION: 1. 3.9 x 3.5 x 3.5 cm solid and cystic left neck mass lesion with significant surrounding inflammatory fat stranding, consistent with partially necrotic left jugular chain lymph node and developing abscess. 2. Multiple additional enlarged nonnecrotic left jugular chain lymph nodes as well, presumably from infectious or inflammatory etiology. 3. Asymmetric enlargement of the left tonsillar pillar as well, without abscess formation. Dictated by: Cristino Bedoya M.D. on 04/17/2017 at 8:50 Approved by: Cristino Bedoya M.D. on 04/17/2017 at 9:01 Additional Diagnostics SURGEON: Eduardo Gallardo MD PREOPERATIVE DIAGNOSIS(ES): Left deep neck abscess. POSTOPERATIVE DIAGNOSIS(ES): Left deep neck abscess. PROCEDURE: Incision and drainage. ESTIMATED BLOOD LOSS: Less than 20 cc. PATHOLOGIC SPECIMENS: Cultures are sent. Eduardo Gallardo MD 04/17/17 1249 Assessment & Plan 31 year generally healthy male who is post left lower wisdom tooth extraction about 6 weeks ago presents with somewhat acute onset of left neck swelling and tenderness with imaging suggestive of developing neck abscess # Acute left neck abscess, present on admission. - Presumably as a complication of tooth extraction about 4 weeks ago - Post incision and drainage of abscess by ENT on 04/17/17 - Appreciate ENT consult. Will followup with recs - Followup pending cultures which seem to be growing Staph - ASO titer negative - Initially on IV Zosyn and Clinda but changed to IV Vanco on 04/18/17 given preliminary cultures showing possible Staph - Continue with supportive care including IVF and pain control with IV Morphine prn - ID consulted this am. will followup with recs # Acute sepsis, present on admission - Met criteria with leukocytosis (17.5), Fever (39.2), Tachycardia (139) with source the neck abscess. - Continue with IVF and Abx as noted above # Acute mild lactic acidosis. present on admission - Resolved with IVF. # Acute leukocytosis. present on admission, improving - Plan as noted above # Acute hyperglycemia. Present on admission. Ongoing - HgA1C 11.1 suggestive of undiagnosed diabetes mellitus - Continue with ISS - Start low dose Lantus - Diabetic teaching - Consider endocrinology consult Dispo: 1-2 days and will try to setup with new PCP GI Prophylaxis: Not indicated VTE Prophylaxis: Sub-Q Heparin (Unfractionated) VTE Mechanical Devices: Intermittant Pneumatic CD Resuscitation Status: CPR: Attempt Resuscitation (discussed and verified with patient) Didier Marino Apr 19, 2017 09:31
[2017-04-19 10:00] VITALS: BP 132/88; PULSE 66; RESP 17; O2SAT 99
[2017-04-19] MEDS ORDERED: CeFAZolin Inj 2 GM in Dextrose 5% 50 ML IV SCH (11:00)
--- NOTE | 2017-04-19 11:47 | NUR ---
Called the residency clinic to set up a PCP appointment with Dr. Montgomery for April 29 at 0830 with a 0815 check in time. 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
[2017-04-19] MEDS ORDERED: 0.9% Sodium Chloride 0 ML ONE (12:43)
[2017-04-19] MEDS ORDERED: Vancomycin Serum Trough XX ONE (13:00)
--- NOTE | 2017-04-19 18:00 | NUR ---
Diabetic EDU Nursing staff to allow pt to use lancet on himself and learn to test blood sugars with [facility] equipment prior to discharge. RN unsure if pt is going home on insulin, may need insulin administration teaching if needed.
--- NOTE | 2017-04-19 18:50 | CONS ---
[address] [address] CONSULTATION REPORT PATIENT: IZA DEL CASTILLO : 1985 MR#: [id number] ADMIT: 04/17/2017 JOB ID: [id number] DATE OF SERVICE: 04/19/[address] Marino for this timely consult. REASON FOR CONSULTATION: Complex left neck infection in a young man seven weeks status post molar extraction. 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 He was in [place] where he was working until fairly recently and while there developed what sounds like an infected tooth which was pulled on or about seven weeks ago. We have no records of that procedure. He subsequent traveled to [facility] in hopes of finding farm work in this area, but has not yet found a job. The last couple of weeks he has been staying with a relative here in [place]. About two weeks ago, he developed the insidious onset of left neck pain and this became much worse in the past few days with swelling, erythema, tenderness and a great deal of pain in his left neck which led him to the emergency department on April 16 just before midnight. He was evaluated including CT scan and exam and admitted to the hospital and placed initially on Zosyn and clindamycin. He was then evaluated by ENT and seen on April [address] Gallardo who felt he had a left neck abscess based on CT and exam and took him to the operating room at that time. He encountered multiple loculations of grossly purulent material and appropriate cultures were done at that time. The patient reports that since surgery and drainage, he has improved somewhat but still has considerable pain in the left neck. He no longer has fevers, chills or sweats and is beginning to feel better but still remains concerned about the status of his left neck infection. It is notable that the patient went to a [place] outlet in the local area and was able to purchase antibiotics [id number] which he had been taking up until the time of his ED visit and surgical debridement so this may cloud our cultures somewhat. PAST MEDICAL HISTORY: None. SOCIAL HISTORY: The patient smokes cigars on occasion and 1-2 cigarettes a day. He also notes that he sometimes drinks three beers after work, but on the weekends it might go up to 10. FAMILY HISTORY: Negative for tuberculosis in 1st or 2nd-degree relatives. REVIEW OF SYSTEMS: No significant headache though he obviously has left neck pain which is quite severe starting at about the level of the ear and continuing down. No visual changes. No sore throat. No cough, shortness of breath. No nausea, vomiting, diarrhea, dysuria. Remainder of the review of systems negative. PHYSICAL EXAMINATION: Reveals an afebrile gentleman, temperature 36.8, pulse 77, respiratory rate 16, blood pressure 135/90, saturating 99% on room air. He is in no distress, awake, alert, conversational though he speaks only Jamaican and we used a corporate administrator. Examination of the head: No trauma. No temporal wasting. Eyes without conjunctivitis. Oral cavity benign. No thrush or hairy leukoplakia. His neck has a large dressing over it and a Raymundo drain is still in place on the left side. Lungs clear. Cardiac: Tones regular rate and rhythm without murmur. Abdomen: Soft, nontender. No hepatosplenomegaly. No Smith catheter. No suprapubic tenderness. His extremities are benign. No synovitis though he does have an IV in his left forearm and there is some mild surrounding erythema without gross evidence of infection. Neurologically, he is intact. LABORATORIES: Include a white count that was as high as 20,000, now down to 15, platelet count 308, creatinine 0.54, procalcitonin 0.24. Serologic studies: A streptozyme was negative. In terms of microbiology, we have negative blood cultures but a wound culture shows on Gram stain gram-positive cocci and has grown a methicillin sensitive Staph aureus. IMAGING: CT scan of the neck showed a left neck mass with surrounding inflammatory changes as well as some partially necrotic left jugular lymph node abnormalities. There are multiple other areas of non-necrotic left jugular chain lymph nodes that are swollen. IMPRESSION: It seems clear that this gentleman has suffered a suppurative left neck infection at least in part due to methicillin-sensitive Staphylococcus aureus following his dental extraction six or seven weeks ago. It also sounds as if this has been going on for a couple of weeks but became much worse in the couple of days prior to admission requiring incision and drainage. I am inclined to think that MSSA is the predominant pathogen here, but it is likely he was taking an oral antibiotic which had anaerobic coverage such as perhaps Augmentin or clinda prior to his admission, and we do not have any way to trace these antibiotics which are dispensed illegally [id number]. Because of that, I think we will need to continue to cover anaerobes at least in addition to MSSA. RECOMMENDATIONS: 1. Will change the antibiotics from the vanc he is currently receiving to cefazolin and Flagyl. 2. I would keep the patient in house at least another day or so until he is more confident of his discharge status and has some diminished pain. 3. We will likely give the patient a dose of Oritavancin tomorrow and then send him out on oral agent with some good anaerobic coverage such as Augmentin. Thank you very much for this interesting consult.
[2017-04-19] MEDS ORDERED: CeFAZolin Inj 2 GM in IV Premix 1 EACH IV SCH (19:05)
[2017-04-19 20:10] VITALS: BP 133/88; PULSE 92; RESP 18; O2SAT 98
--- NOTE | 2017-04-19 20:39 | PCM.CHPMED ---
Subjective Date of Service: Apr 19, 2017 Primary Physician: Admitting Physician: Garrick Hassan MD Primary Care Physician: Myriam Attending Physician: Didier Marino Chief Complaint: Chief Complaint: Initial Endocrinology consultation. Asked by Dr. Marino to consult regarding management of new onset type II diabetes mellitus. The patient is a 31-year-old man who presents with an acute soft tissue infection of the neck and is noted to have markedly elevated blood glucose. History of Present Illness: The patient was in his usual state of health, when he noticed increased swelling or local pain on the left side of his neck over the past week. This is his first episode of acute soft tissue infection. On review of systems: He has not had recent change in weight. He drinks water regularly but has not had recent polydipsia. He does not note change in urinary frequency. He has had episodes of visual blurring, mostly at nighttime. Otherwise no visual problems. He does endorse recent dry mouth. He has no symptoms of peripheral neuropathy. His father has diabetes, although recently discontinued insulin. He has 9 brothers and sisters none of whom have diabetes. Review of Systems: 11 system ROS performed with findings noted above. PMH Past Medical History None significant. He has no regular doctor. 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 Mostly eats prepared foods, Burundian diet. Very few sweet carbohydrates. Exam Vital Signs Vital Sign - Last Date Time Temp Pulse Resp B/P Pulse Ox O2 Delivery O2 Flow Rate FiO2 04/19/17 10:00 36.6 66 17 132/88 99 Room Air 04/17/17 17:09 2.00 Intake and Output 04/18/17 04/18/17 04/19/17 Cumulative From/Thru 15:00 23:00 07:00 04/16/17 19:57 - 04/19/17 06:43 Intake Total 1200 ml 1624 ml 1500 ml 9281 ml Output Total 400 ml 1200 ml 1200 ml 5670 ml Balance 800 ml 424 ml 300 ml 3611 ml Intake Oral 1200 ml 994 ml 1100 ml 4094 ml IV Total 630 ml 400 ml 5187 ml Output Urine Total 400 ml 1200 ml 1200 ml 5650 ml Estimated Blood Loss 20 ml # Voids 3 3 # Bowel Movements 0 0 0 Sitting with neck stiffly in bed HEENT: Sclera anicteric, pupils reactive, dentition intact Neck: Circumferential bandage with left lateral anterior soft tissue wound with packing/drain Chest: Lungs are clear, expansion symmetric Cardiac: S1-S2 regular without murmur Abdomen: Soft nontender nondistended no palpable hepatomegaly Extremities: No pitting edema, skin healthy-appearing, pulses intact in feet Neurological: Alert oriented Ukrainian-speaking, cranial nerves symmetric, motor strength 5/5, reflexes 2+ symmetric, light touch sensation intact in feet Lab and Diagnostics Labs Hemoglobin A1c 11.1 24 hour glucose profile on 04/18: Range 294-367 MG per DL Result Diagram: 04/19/17 0445 04/19/17 0445 Assessment & Plan Assessment 31-year-old [place] man with new diagnosis of type II diabetes mellitus. No evidence for DKA. He is minimally symptomatic, although his hemoglobin A1c of 11.1% indicates marked sustained hyperglycemia. Current blood glucose may be elevated by stress of acute illness. The 2 issues are current glycemic management with regard to inpatient diabetic goals in the setting of soft tissue infection, and secondly plans for outpatient therapy and follow-up. # Inpatient diabetic management: Usual basal insulin requirement is 0.2-0.3 units per KG per day. This is likely increased due to stress of acute inflammatory illness. At this time he will require insulin, although made the titrated down or even discontinued after acute phase of treatment. - Glargine insulin 20 units at bedtime, adjust as needed to achieve fasting a.m. blood glucose 100-140 - Initiate metformin 500 mg twice a day, increase to 1000 twice a day if no gastrointestinal intolerance - 4 times a day capillary blood glucose - Glucose control goals: Random less than 180, fasting less than 140, none less than 70 # Planning for outpatient diabetic care - If Lantus dose can be titrated to 10 units or less with fasting a.m. blood glucose 100-140 at the time of discharge, then he may go home with no insulin therapy - If Lantus dose is 10-20 units with fasting a.m. blood sugars 100-140, then I would try to initiate glipizide without further insulin therapy - If these glycemic goals are not met, plan to discharge on bedtime NPH insulin (most affordable for self-pay patient) at two thirds the dose of his inpatient Lantus, along with full dose daily metformin - Diabetes education for blood glucose monitoring (SMBG), as well as insulin therapy - I suspect he will need a simple regimen of bedtime basal with daytime oral medications, primarily with once or twice daily SMBG - Patient certainly needs outpatient follow-up, which may be primary care or alternately endocrinology clinic for further dose adjustments within 2 weeks of discharge I will see the patient on 04/20/17, after which I will be out of office. Please contact me at [phone] with any questions. Thank you for this interesting consult. Problems: GI Prophylaxis: Not indicated VTE Prophylaxis: Sub-Q Heparin (Unfractionated) VTE Mechanical Devices: Intermittant Pneumatic CD Resuscitation Status: CPR: Attempt Resuscitation (discussed and verified with patient) Time spent 65 minutes. Patient interviewed with the assistance of video destination coordinator. Davide Gonzalez MD Apr 19, 2017 19:40
[2017-04-19] MEDS ORDERED: Insulin GLARgine 100 Unit/mL Syringe SUBQ SCH ×3 (21:00)
[2017-04-19] MEDS: HYDROcodone-APAP 5-325 mg Tablet PO PRN (21:07)
[2017-04-20] MEDS: Sodium Chloride LOK Flush 10 mL Syringe IVFLUSH SCH ×3 (00:30→16:30)
[2017-04-20] MEDS: Heparin 5,000 Unit/mL Inj SUBQ SCH ×3 (00:46→16:44)
--- NOTE | 2017-04-20 01:22 | NUR ---
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 Patient complained of pain 6/10 on pain scale. Pain medication administered. Dressing around neck is loose with connor drain being visible when pulled back. There is no apparent drainage. Patient skin is warm but is afebrile. No complaints of n/v. Patient was shown how to perform needle stick for blood glucose but refused to do it himself. Blood glucose 272 and 20 units of Lantus administered. Call light is within reach. Care continues.
[2017-04-20 04:50] VITALS: BP 137/96; PULSE 85; RESP 17; O2SAT 96
[2017-04-20] MEDS: CeFAZolin Inj 2 GM in IV Premix 1 EACH IV SCH ×3 (05:12→21:34)
[2017-04-20 08:03] LABS: BASOPHILS % (AUTO) 0.4 % (0-3); MONOCYTES % (AUTO) 7.6 % (4-12); Mean Corpuscular Hemoglobin 28.4 pg (27.0-35.0); Mean Corpuscular Volume 83.9 fL (81-100); NEUTROPHILS % (AUTO) 62.7 % (40-74); Platelet Count 329 bil/L (150-400)
[2017-04-20] MEDS: Insulin LISPRO Low-Dose Scale SUBQ PRN (08:24)
[2017-04-20] MEDS: HYDROcodone-APAP 5-325 mg Tablet PO PRN ×2 (08:25→11:24)
--- NOTE | 2017-04-20 11:10 | PCM.PNMED ---
Subjective Date of Service Apr 20, 2017 Subjective Denies any new issues/complaints other than diaphoresis Exam Vital Signs Vital Sign - Last Date Time Temp Pulse Resp B/P Pulse Ox O2 Delivery O2 Flow Rate FiO2 04/20/17 04:50 37.2 85 17 137/96 96 Room Air 04/17/17 17:09 2.00 Intake and Output 04/19/17 04/19/17 04/20/17 Cumulative From/Thru 15:00 23:00 07:00 04/16/17 19:57 - 04/20/17 05:47 Intake Total 1600 ml 820 ml 15933 ml Output Total 1750 ml 850 ml 8270 ml Balance -150 ml -30 ml 3431 ml Intake Oral 1500 ml 820 ml 6414 ml IV Total 100 ml 5287 ml Output Urine Total 1750 ml 850 ml 8250 ml Estimated Blood Loss 20 ml # Voids 3 # Bowel Movements 0 0 Exam General: Alert, No Acute Distress Head: Normal Eyes: Scleral Anicteric Nose: Mucous Membr Moist/[place] Mouth: Mucous Membr Moist/[place] Neck: Supple, Tenderness, dressing in place. Chest & Lungs: Chest Wall Normal, Clear to auscultation bilat Cardiovascular: Regular Rate/Rhythm Pulses: NL carotid, radial, femoral, DP, PT Abdomen: Non-tender, Non-distended, Normoactive bowel tones, Soft Extremities: No cyanosis/clubbing/edema bilat Skin: Other (no significant ulcer/rash other than the neck) Neurological: Grossly Neurologically Intact, Normal Speech IVs and Medications Medications Reviewed: Medications were reviewed in detail Lab and Diagnostics Result Diagram: 04/20/17 0748 04/19/17 0445 X-Rays, CTs and MRIs Date of Service: 04/17/17 0015 PROCEDURE: CT NECK SOFT TISSUES WITH CONTRAST ([id number]) IMPRESSION: 1. 3.9 x 3.5 x 3.5 cm solid and cystic left neck mass lesion with significant surrounding inflammatory fat stranding, consistent with partially necrotic left jugular chain lymph node and developing abscess. 2. Multiple additional enlarged nonnecrotic left jugular chain lymph nodes as well, presumably from infectious or inflammatory etiology. 3. Asymmetric enlargement of the left tonsillar pillar as well, without abscess formation. Dictated by: Cristino Bedoya M.D. on 04/17/2017 at 8:50 Approved by: Cristino Bedoya M.D. on 04/17/2017 at 9:01 Additional Diagnostics SURGEON: Eduardo Gallardo MD PREOPERATIVE DIAGNOSIS(ES): Left deep neck abscess. POSTOPERATIVE DIAGNOSIS(ES): Left deep neck abscess. PROCEDURE: Incision and drainage. ESTIMATED BLOOD LOSS: Less than 20 cc. PATHOLOGIC SPECIMENS: Cultures are sent. Eduardo Gallardo MD 04/17/17 1249 Assessment & Plan 31 year-old generally healthy male who is post left lower wisdom tooth extraction about 6 weeks ago presents with somewhat acute onset of left neck swelling and tenderness with imaging suggestive of developing neck abscess # Acute left neck abscess, present on admission. - Presumably as a complication of tooth extraction about 4 weeks ago - Post incision and drainage of abscess by ENT on 04/17/17 - Appreciate ENT consult. Will followup with recs - Wound cultures growing MSSA so far - Initially on IV Zosyn and Clinda but changed to IV Vanco on 04/18/17 given preliminary cultures showing possible Staph. Then changed to Cefazolin and Flagyl on 04/19 per ID recs. - Appreciate ID consult. Will followup with recs - Continue with supportive care including IVF and pain control with IV Morphine prn # Acute sepsis, present on admission - Met criteria with leukocytosis (17.5), Fever (39.2), Tachycardia (139) with source the neck abscess. - Continue with IVF and Abx as noted above # Acute mild lactic acidosis. present on admission - Resolved with IVF. # Acute leukocytosis. present on admission, improving - Plan as noted above # Acute hyperglycemia. Present on admission. Ongoing - HgA1C 11.1 suggestive of new diagnosis of diabetes mellitus - Appreciate endocrinology consult by Dr. Gonzalez. Will followup with recs - Glargine insulin 20 units at bedtime, adjust as needed to achieve fasting a.m. blood glucose 100-140 - Initiate metformin 500 mg twice a day, increase to 1000 twice a day if no gastrointestinal intolerance - 4 times a day capillary blood glucose - Glucose control goals: Random less than 180, fasting less than 140, none less than 70 - If Lantus dose can be titrated to 10 units or less with fasting a.m. blood glucose 100-140 at the time of discharge, then he may go home with no insulin therapy - If Lantus dose is 10-20 units with fasting a.m. blood sugars 100-140, then I would try to initiate glipizide without further insulin therapy - If these glycemic goals are not met, plan to discharge on bedtime NPH insulin (most affordable for self-pay patient) at two thirds the dose of his inpatient Lantus, along with full dose daily metformin - Diabetes education for blood glucose monitoring (SMBG), as well as insulin therapy Dispo: 1-2 days GI Prophylaxis: Not indicated VTE Prophylaxis: Sub-Q Heparin (Unfractionated) VTE Mechanical Devices: Intermittant Pneumatic CD Resuscitation Status: CPR: Attempt Resuscitation (discussed and verified with patient) Didier Marino Apr 20, 2017 11:10
[2017-04-20] MEDS: Insulin LISPRO Low-Dose Scale SUBQ SCH ×3 (11:35→21:50)
[2017-04-20 11:57] VITALS: BP 131/89; PULSE 90; RESP 17; O2SAT 99
[2017-04-20] MEDS ORDERED: Glycopyrrolate 0.2 MG/ML 1mL Inj ONE (12:40)
[2017-04-20] MEDS ORDERED: Propofol 10,000 mCg/mL 20 mL Inj ONE (12:40)
[2017-04-20] MEDS ORDERED: Dexamethasone 4 mg/mL Inj ONE (12:40)
[2017-04-20] MEDS ORDERED: Ketamine 10 mg/mL 20 mL Inj ONE (12:40)
[2017-04-20] MEDS ORDERED: fentaNYL-PF 50 mCg/mL 2 mL Inj ONE (12:40)
[2017-04-20] MEDS ORDERED: Ondansetron 2 mg/mL 2 mL Inj ONE (12:40)
--- NOTE | 2017-04-20 14:51 | NUR ---
Social Work- Readiness for Discharge/Multidisciplinary Rounds Data: EMR reviewed. Pt is on day 3 of hospitalization. Pt discussed in multidisciplinary rounds, pt is not medically stable at this time, anticipate d/c tomorrow. Pt may require an insulin regimen at home. RCA screened pt, pt is not eligible for DSHS but has been submitted to AEM program. SW researched generic insulin vial costs, test strip costs, glucometer costs, and syringe costs through [facility]. Most of these items are available over the counter. paged with the following information. Insulin vial costs are listed below: Reli ON [place] N [place] R Spoke with pt at bedside regarding discharge plan and diabetes management supplies. Explained costs through [facility] and provided pt with $4 med list in Armenian for future reference. Explained residency clinic appointment scheduled for April 29, pt is agreeable to this appointment. Explained that pt's AEM would only cover emergent inpatient stays, provided [place] [employer] financial[employer] consultant application to pt and explained process. Pt agreeable and aware that he will have an out of pocket cost associated with medications. Pt confirms that his family will transport home from the hospital. Pt declines any additional questions or d/c planning needs. SW will continue to follow. Assessment: Pt who is independent at baseline with ADLs and self-care Plan: Pt likely to d/c home with his family to transport via POV. Pt will have to pay for diabetes supplies and insulin out of pocket. Pt is aware of [employer] consultant application. Pt agreeable to residency clinic follow up. SW will continue to follow for d/c planning needs. ALL Lopez
--- NOTE | 2017-04-20 17:11 | PROG NOTE ---
[address] [address] PROGRESS NOTE PATIENT: IZA DEL CASTILLO : 1985 MR#: [id number] ADMIT: 04/17/2017 JOB ID: [id number] DATE: 04/20/2017 INFECTIOUS DISEASE FOLLOWUP NOTE: REASON FOR FOLLOWUP: Severe left neck infection secondary to odontogenic infection. INTERVAL HISTORY: Overnight the patient reports no fevers, chills, or sweats. He has minimal pain around the site of the drain in his left neck. He has no trouble opening his mouth, eating, or drinking. PHYSICAL EXAMINATION: Reveals an afebrile gentleman temperature 36.6, pulse 90, respiratory rate 17, blood pressure 135/89. He is saturating well on room air. He is in no distress. Examination of the eyes normal. Oral cavity: No thrush, hairy leukoplakia. The patient's neck is notable for the presence of the drain in the left neck; it is a Raymundo type drain and there is some serosanguineous foul-smelling liquid oozing from around the sides of the drain. The patient's lungs are clear. His range of motion of his neck is quite normal. Abdomen negative. LABORATORIES: Include a white count which has finally normalized at 8400. His diff is also completely normal. His creatinine 0.54. His procalcitonin 0.24. Serologic studies include a streptozyme which is negative. The culture from the neck grew MSSA, which we have previously discussed. MRSA screen of the nares negative. IMPRESSION: Overall the patient seems to be gradually improving with respect to this left neck infection but his progress has been quite slow and he continues to have drainage from around the [place] and there is certainly a sensation of fullness around that area of his neck which is of some concern. Complex head and neck infections like this arising from odontogenic infections typically improve fairly dramatically within four or five days after appropriate drainage, and I am hopeful that over the next couple of days this patient will show significant signs of improvement. I think it would be reasonable for ear, nose, and throat to review his progress, however. RECOMMENDATIONS: 1. Will continue with cefazolin and Flagyl. 2. I might invite ENT to come review his progress and make certain they think he is going in the right direction. 3. Will continue to closely follow this patient with you. Thank you very much.
--- NOTE | 2017-04-20 18:42 | NUR ---
Dressing/BG Outer dressing removed by Dr. Arambula this afternoon, [place] drain remains in place, 4x4 gauze folded and set underneath to catch any drainage. Left neck continues to be swollen, minimal drainage noted to gauze ~3hrs post dressing removal. Pt stating mild discomfort, denied need for pain medication. BG remains elevated in 200s. Pt previously only on low dose sliding scale. Nutritional dose ordered this afternoon. For lunch, with use of mission support specialist, had pt walk through the steps of checking BG. Per NOC RN, pt not wanting to have to poke himself yet, but with this RN, pt was able to walk through majority of steps to take BG. Care continues.
[2017-04-20 19:50] VITALS: BP 127/82; PULSE 92; RESP 16; O2SAT 97
[2017-04-20] MEDS ORDERED: Insulin GLARgine 100 Unit/mL Syringe SUBQ SCH (21:00)
--- NOTE | 2017-04-20 22:58 | NUR ---
Dressing Change/Activity During initial assessment, patient complained of pain 4/10 on pain scale. Patient states pain was more prominent on the back side of his head than on his neck. Area around and underneath ear is swollen and hard to the touch. Dressing was changed with new 4x4's folded to catch drainage. Patient more accepting to teaching in regards to blood sugar testing. Patient used BG needle this shift. Patient not willing to inject insulin. VSS. Call light within reach. Care continues.
[2017-04-21] MEDS: Heparin 5,000 Unit/mL Inj SUBQ SCH ×3 (00:23→17:13)
[2017-04-21] MEDS: Sodium Chloride LOK Flush 10 mL Syringe IVFLUSH SCH ×3 (00:23→16:30)
[2017-04-21 05:15] VITALS: BP 119/85; PULSE 76; RESP 18; O2SAT 98
[2017-04-21] MEDS: CeFAZolin Inj 2 GM in IV Premix 1 EACH IV SCH ×3 (05:30→21:38)
[2017-04-21] MEDS: Insulin LISPRO Low-Dose Scale SUBQ SCH ×4 (08:32→22:00)
--- NOTE | 2017-04-21 09:18 | PCM.PNMED ---
Subjective Date of Service Apr 21, 2017 Subjective Denies any new issues/complaints Exam Vital Signs Vital Sign - Last Date Time Temp Pulse Resp B/P Pulse Ox O2 Delivery O2 Flow Rate FiO2 04/21/17 05:15 36.6 76 18 119/85 98 Room Air 04/17/17 17:09 2.00 Intake and Output 04/20/17 04/20/17 04/21/17 Cumulative From/Thru 15:00 23:00 07:00 04/16/17 19:57 - 04/21/17 06:12 Intake Total 253 ml 1055 ml 174 ml 38677 ml Output Total 775 ml 9045 ml Balance 253 ml 280 ml 174 ml 4138 ml Intake Oral 900 ml 7314 ml IV Total 253 ml 155 ml 174 ml 5869 ml Output Urine Total 775 ml 9025 ml Estimated Blood Loss 20 ml # Voids 3 # Bowel Movements 0 0 Exam General: Alert, No Acute Distress Head: Normal Eyes: Scleral Anicteric Nose: Mucous Membr Moist/[place] Mouth: Mucous Membr Moist/[place] Neck: Supple, Tenderness, dressing in place. Chest & Lungs: Chest Wall Normal, Clear to auscultation bilat Cardiovascular: Regular Rate/Rhythm Pulses: NL carotid, radial, femoral, DP, PT Abdomen: Non-tender, Non-distended, Normoactive bowel tones, Soft Extremities: No cyanosis/clubbing/edema bilat Skin: Other (no significant ulcer/rash other than the neck) Neurological: Grossly Neurologically Intact, Normal Speech IVs and Medications Medications Reviewed: Medications were reviewed in detail Lab and Diagnostics Result Diagram: 04/20/17 0748 04/19/17 0445 X-Rays, CTs and MRIs Date of Service: 04/17/17 0015 PROCEDURE: CT NECK SOFT TISSUES WITH CONTRAST ([id number]) IMPRESSION: 1. 3.9 x 3.5 x 3.5 cm solid and cystic left neck mass lesion with significant surrounding inflammatory fat stranding, consistent with partially necrotic left jugular chain lymph node and developing abscess. 2. Multiple additional enlarged nonnecrotic left jugular chain lymph nodes as well, presumably from infectious or inflammatory etiology. 3. Asymmetric enlargement of the left tonsillar pillar as well, without abscess formation. Dictated by: Cristino Bedoya M.D. on 04/17/2017 at 8:50 Approved by: Cristino Bedoya M.D. on 04/17/2017 at 9:01 Additional Diagnostics SURGEON: Eduardo Gallardo MD PREOPERATIVE DIAGNOSIS(ES): Left deep neck abscess. POSTOPERATIVE DIAGNOSIS(ES): Left deep neck abscess. PROCEDURE: Incision and drainage. ESTIMATED BLOOD LOSS: Less than 20 cc. PATHOLOGIC SPECIMENS: Cultures are sent. Eduardo Gallardo MD 04/17/17 1249 Assessment & Plan 31 year-old generally healthy male who is post left lower wisdom tooth extraction about 6 weeks ago presents with somewhat acute onset of left neck swelling and tenderness with imaging suggestive of developing neck abscess # Acute left neck abscess, present on admission. - Presumably as a complication of tooth extraction about 4 weeks ago - Post incision and drainage of abscess by ENT on 04/17/17 - Appreciate ENT consult. Will followup with recs - Wound cultures growing MSSA so far - Initially on IV Zosyn and Clinda but changed to IV Vanco on 04/18/17 given preliminary cultures showing possible Staph. Then changed to Cefazolin and Flagyl on 04/19 per ID recs. - Appreciate ID consult. Will followup with recs - Continue with supportive care including IVF and pain control with IV Morphine prn # Acute sepsis, present on admission. Clinically resolved. - Met criteria with leukocytosis (17.5), Fever (39.2), Tachycardia (139) with source the neck abscess. - Continue with IVF and Abx as noted above # Acute mild lactic acidosis. present on admission - Resolved with IVF. # Acute leukocytosis. present on admission. Resolved. - Plan as noted above # Acute hyperglycemia. Present on admission. Ongoing - Glucose still not ideally controlled. - HgA1C 11.1 suggestive of new diagnosis of diabetes mellitus - Appreciate endocrinology consult by Dr. Gonzalez. Will followup with recs - Started on Glargine insulin 20 units at bedtime on 04/19 and increased to 30 units on 04/20 - Started metformin 500 mg twice a day on 04/19. Increase to 1000 twice a day if no gastrointestinal intolerance - 4 times a day capillary blood glucose - Glucose control goals: Random less than 180, fasting less than 140, none less than 70 - If Lantus dose can be titrated to 10 units or less with fasting a.m. blood glucose 100-140 at the time of discharge, then he may go home with no insulin therapy - If Lantus dose is 10-20 units with fasting a.m. blood sugars 100-140, then I would try to initiate glipizide without further insulin therapy - If these glycemic goals are not met, plan to discharge on bedtime NPH insulin (most affordable for self-pay patient) at two thirds the dose of his inpatient Lantus, along with full dose daily metformin - Diabetes education for blood glucose monitoring (SMBG), as well as insulin therapy Dispo: 1-2 days pending better glucose control and further recommendations by ENT and ID GI Prophylaxis: Not indicated VTE Prophylaxis: Sub-Q Heparin (Unfractionated) VTE Mechanical Devices: Intermittant Pneumatic CD Resuscitation Status: CPR: Attempt Resuscitation (discussed and verified with patient) Didier Marino Apr 21, 2017 09:18
[2017-04-21 09:57] VITALS: BP 121/80; PULSE 92; RESP 16; O2SAT 97
--- NOTE | 2017-04-21 12:02 | PROG NOTE ---
[address] [address] PROGRESS NOTE PATIENT: IZA DEL CASTILLO : 1985 MR#: [id number] ADMIT: 04/17/2017 JOB ID: [id number] DATE: 04/21/2017 INFECTIOUS DISEASE FOLLOWUP NOTE: REASON FOR FOLLOWUP: Left neck abscess secondary to odontogenic process. INTERVAL HISTORY: Overnight the patient says he has no fevers, chills, or sweats. No pulmonary complaints. No cough or shortness of breath. No nausea, vomiting, or diarrhea. He still has minimal pain at the site of the [place] drain which is still present in his left neck. PHYSICAL EXAMINATION: Reveals an afebrile gentleman temperature 36.7, pulse 92, respiratory rate 16, blood pressure 121/80. He is in no acute distress. He is awake, alert, conversational. The concrete batching plant operator was used to get additional history. He has a drain present in his left neck and it is still draining some serosanguineous, somewhat viscous fluid. In addition, the area above the drain, extending from about the clavicle up to the ear, remains indurated with a sort of woody induration. It is not as tender as it once was but still overall quite impressive. Lungs: Clear. Cardiac tones: No murmur. Abdomen: Benign. LABORATORIES: Include white count last done yesterday 8400. No recent procalcitonin or creatinine. Streptozyme was negative. Cultures yielded a pure growth of Staph aureus from the wound. Blood cultures and MRSA screen negative. That Staph aureus was MSSA, I should mention. IMPRESSION: This is a young gentleman with a complicated left neck infection secondary to an odontogenic source. Somewhat surprisingly it is growing mainly MSSA and he is slowly improving on cefazolin and Flagyl. I think he is nearing the point where he could be discharged but I am concerned about continued induration and drainage and think at least one more visit from ENT would be advisable. RECOMMENDATIONS: 1. I have discussed this case with Dr. Marino. 2. I think ENT should come by and take one more look before we prepare a discharge plan. 3. I would continue with these antibiotics for the time being with a probable transition to Augmentin or a similar agent within the next day or two, depending on his clinical course. Other options here would, of course, include an oral Staph drug such as perhaps even linezolid plus Flagyl for anaerobes. Thank you.
[2017-04-21 14:46] VITALS: BP 114/77; PULSE 99; RESP 18; O2SAT 97
--- NOTE | 2017-04-21 16:00 | PCM.PNMED ---
Subjective Date of Service Apr 21, 2017 Subjective Patient now POD 3 status post I&D of the left neck by Dr. Gallardo. Raym[place] drains in place. Endorses improved pain. Continued drainage from the drains. WBC normalized, no fevers. BG elevated when last checked. Exam Vital Signs Laboratory Tests 72 Hours Test 04/19/17 04:45 04/20/17 07:48 White Blood Count 15.4th/mm3 (3.8-10.1) 8.4th/mm3 (3.8-10.1) Red Blood Count 4.77mil/mm3 (4.40-5.80) 5.21mil/mm3 (4.40-5.80) Hemoglobin 13.6g/dL (13.8-17.2) 14.8g/dL (13.8-17.2) Hematocrit 40.7% (41.0-50.0) 43.7% (41.0-50.0) Mean Corpuscular Volume 85.3fL (81-100) 83.9fL (81-100) Mean Corpuscular Hemoglobin 28.5pg (27.0-35.0) 28.4pg (27.0-35.0) Mean Corpuscular Hemoglobin Concent 33.4% (32.0-37.0) 33.9% (32.0-37.0) Red Cell Distribution Width 12.4% (12.3-15.4) 12.3% (12.3-15.4) Platelet Count 308bil/L (150-400) 329bil/L (150-400) Neutrophils (%) (Auto) 75.2% (40-74) 62.7% (40-74) Lymphocytes (%) (Auto) 17.9% (14-46) 27.7% (14-46) Monocytes (%) (Auto) 6.3% (4-12) 7.6% (4-12) Eosinophils (%) (Auto) 0.1% (0-5) 1.0% (0-5) Basophils (%) (Auto) 0.1% (0-3) 0.4% (0-3) Sodium Level 136mEq/L (134-144) Potassium Level 4.0mEq/L (3.5-5.2) Chloride Level 97mEq/L (97-108) Carbon Dioxide Level 22mmol/L (18-29) Blood Urea Nitrogen 14mg/dL (6-20) Creatinine 0.54mg/dL (0.76-1.27) Estimat Glomerular Filtration Rate 190mL/min (>59) Glucose Level 271mg/dL (60-99) Calcium Level 9.2mg/dL (8.5-10.1) Procalcitonin 0.24ng/mL (0.00-0.08) Exam Examination demonstrates persistent induration of the left neck. Mild tenderness. No obvious fluctuance. Persistent, purulent drainage from the raymundo sites. Lab and Diagnostics Result Diagram: 04/20/17 0748 04/19/17 0445 X-Rays, CTs and MRIs Date of Service: 04/17/17 0015 PROCEDURE: CT NECK SOFT TISSUES WITH CONTRAST ([id number]) IMPRESSION: 1. 3.9 x 3.5 x 3.5 cm solid and cystic left neck mass lesion with significant surrounding inflammatory fat stranding, consistent with partially necrotic left jugular chain lymph node and developing abscess. 2. Multiple additional enlarged nonnecrotic left jugular chain lymph nodes as well, presumably from infectious or inflammatory etiology. 3. Asymmetric enlargement of the left tonsillar pillar as well, without abscess formation. Dictated by: Cristino Bedoya M.D. on 04/17/2017 at 8:50 Approved by: Cristino Bedoya M.D. on 04/17/2017 at 9:01 Additional Diagnostics SURGEON: Eduardo Gallardo MD PREOPERATIVE DIAGNOSIS(ES): Left deep neck abscess. POSTOPERATIVE DIAGNOSIS(ES): Left deep neck abscess. PROCEDURE: Incision and drainage. ESTIMATED BLOOD LOSS: Less than 20 cc. PATHOLOGIC SPECIMENS: Cultures are sent. Eduardo Gallardo MD 04/17/17 7036 Assessment & Plan 1 - Recommend Raym[place] drains stay in place. Patient should follow up with Dr. Gallardo within 24-48 hours of discharge. 2 - Recommend strict glucose control prior to discharge, which will be very important for his recovery. His last BG was 271. 3 - Continue antibiotics per ID recommendations. 4 - Would not repeat scan unless patient worsens (worsening WBC, fevers, increasing pain). Anamaria Fields MD GI Prophylaxis: Not indicated VTE Prophylaxis: Sub-Q Heparin (Unfractionated) VTE Mechanical Devices: Intermittant Pneumatic CD Resuscitation Status: CPR: Attempt Resuscitation (discussed and verified with patient) Kartik Fields MD Apr 21, 2017 16:00
[2017-04-21] MEDS: HYDROcodone-APAP 5-325 mg Tablet PO PRN (17:21)
--- NOTE | 2017-04-21 18:45 | NUR ---
Drsg Continued rolled 4x4 gauze underneath connor drain; sero-sang darkened output noted to gauze itself; connor with dried drainage noted; continues to have swelling at left neck. Pt in and out of sleep throughout shift, stated pain and requesting pain medication for first time around dinner. Ambulating around in room, up to chair and BR. Anticipate ENT to see pt this evening. Care continues.
[2017-04-21 20:00] VITALS: BP 131/90; PULSE 79; RESP 20; O2SAT 100
[2017-04-21] MEDS: Insulin Human NPH 100 Unit/mL Syringe SUBQ SCH (23:20)
[2017-04-22] MEDS: Sodium Chloride LOK Flush 10 mL Syringe IVFLUSH SCH ×3 (00:30→16:43)
[2017-04-22] MEDS: Heparin 5,000 Unit/mL Inj SUBQ SCH ×3 (00:47→16:42)
[2017-04-22] MEDS: CeFAZolin Inj 2 GM in IV Premix 1 EACH IV SCH ×3 (05:00→21:13)
[2017-04-22] MEDS: HYDROcodone-APAP 5-325 mg Tablet PO PRN (05:23)
[2017-04-22 05:55] VITALS: BP 121/81; PULSE 76; RESP 20; O2SAT 97
--- NOTE | 2017-04-22 06:18 | NUR ---
Pain Patient refused pain medication for most of shift, but later in the morning stated his pain was a 5/10 and asked if he could have something at that point. One Percocet given. Patient A&OX3. Vitals stable. Last blood glucose 121 at 0310. Care continues.
[2017-04-22] MEDS: Insulin LISPRO Low-Dose Scale SUBQ SCH ×4 (08:39→22:00)
--- NOTE | 2017-04-22 11:04 | PCM.PNMED ---
Subjective Date of Service Apr 22, 2017 Subjective Denies any new issues/complaints Exam Vital Signs Vital Sign - Last Date Time Temp Pulse Resp B/P Pulse Ox O2 Delivery O2 Flow Rate FiO2 04/22/17 05:55 36.6 76 20 121/81 97 Room Air 04/17/17 17:09 2.00 Intake and Output 04/21/17 04/21/17 04/22/17 Cumulative From/Thru 15:00 23:00 07:00 04/16/17 19:57 - 04/22/17 06:41 Intake Total 400 ml 942 ml 148 ml 29042 ml Output Total 800 ml 9845 ml Balance -400 ml 942 ml 148 ml 4828 ml Intake Oral 400 ml 756 ml 8470 ml IV Total 186 ml 148 ml 6203 ml Output Urine Total 800 ml 9825 ml Estimated Blood Loss 20 ml # Voids 3 6 # Bowel Movements 1 2 3 Exam General: Alert, No Acute Distress Head: Normal Eyes: Scleral Anicteric Nose: Mucous Membr Moist/[place] Mouth: Mucous Membr Moist/[place] Neck: Supple, Tenderness, dressing and drain in place. Chest & Lungs: Chest Wall Normal, Clear to auscultation bilat Cardiovascular: Regular Rate/Rhythm Abdomen: Non-tender, Non-distended, Normoactive bowel tones, Soft Extremities: No cyanosis/clubbing/edema bilat Skin: Other (no significant ulcer/rash other than the neck) Neurological: Grossly Neurologically Intact, Normal Speech IVs and Medications Medications Reviewed: Medications were reviewed in detail Lab and Diagnostics Result Diagram: 04/20/17 0748 04/19/17 0445 X-Rays, CTs and MRIs Date of Service: 04/17/17 0015 PROCEDURE: CT NECK SOFT TISSUES WITH CONTRAST ([id number]) IMPRESSION: 1. 3.9 x 3.5 x 3.5 cm solid and cystic left neck mass lesion with significant surrounding inflammatory fat stranding, consistent with partially necrotic left jugular chain lymph node and developing abscess. 2. Multiple additional enlarged nonnecrotic left jugular chain lymph nodes as well, presumably from infectious or inflammatory etiology. 3. Asymmetric enlargement of the left tonsillar pillar as well, without abscess formation. Dictated by: Cristino Bedoya M.D. on 04/17/2017 at 8:50 Approved by: Cristino Bedoya M.D. on 04/17/2017 at 9:01 Additional Diagnostics SURGEON: Eduardo Gallardo MD PREOPERATIVE DIAGNOSIS(ES): Left deep neck abscess. POSTOPERATIVE DIAGNOSIS(ES): Left deep neck abscess. PROCEDURE: Incision and drainage. ESTIMATED BLOOD LOSS: Less than 20 cc. PATHOLOGIC SPECIMENS: Cultures are sent. Eduardo Gallardo MD 04/17/17 1249 Assessment & Plan 31 year-old generally healthy male who is post left lower wisdom tooth extraction about 6 weeks ago presents with somewhat acute onset of left neck swelling and tenderness with imaging suggestive of developing neck abscess # Acute left neck abscess, present on admission. - Presumably as a complication of tooth extraction about 4 weeks earlier - Post incision and drainage of abscess by ENT on 04/17/17 - Appreciate ENT consult. Will followup with recs - Wound cultures growing MSSA - Initially on IV Zosyn and Clinda but changed to IV Vanco on 04/18/17 given preliminary cultures showing possible Staph. Then changed to Cefazolin and Flagyl on 04/19 per ID recs. - Appreciate ID consult. Will followup with recs - Continue with supportive care including IVF and pain control with IV Morphine prn - Discussed patient's case with Dr. Gallardo on 04/22/17. He recommends that if patient were to be discharged on Monday 04/23 to call his office in the morning and set the patient up for followup in his clinic for the afternoon of 04/23. If patient still not ready for discharge tomorrow should notify Dr. Gallardo so he can see the patient in the hospital. # Acute sepsis, present on admission. Clinically resolved. - Met criteria with leukocytosis (17.5), Fever (39.2), Tachycardia (139) with source the neck abscess. - Continue with IVF and Abx as noted above # Acute mild lactic acidosis. present on admission - Resolved with IVF. # Acute leukocytosis. present on admission. Resolved. - Plan as noted above # Acute hyperglycemia and new diagnosis of diabetes mellitus. Present on admission. - Glucose better controlled. - HgA1C 11.1 suggestive of new diagnosis of diabetes mellitus - Appreciate endocrinology consult by Dr. Gonzalez. Will followup with recs - Started on Glargine insulin 20 units at bedtime on 04/19 and increased to 30 units on 04/20. Changed Insulin to NPH 20 units qhs on 04/21 (given NPH more affordable for self-pay patient) - Started metformin 500 mg twice a day on 04/19. Increase to 1000 twice a day if no gastrointestinal intolerance - Per Dr. Gonzalez's recommendations: - 4 times a day capillary blood glucose - Glucose control goals: Random less than 180, fasting less than 140, none less than 70 - If Lantus dose can be titrated to 10 units or less with fasting a.m. blood glucose 100-140 at the time of discharge, then he may go home with no insulin therapy - If Lantus dose is 10-20 units with fasting a.m. blood sugars 100-140, then I would try to initiate glipizide without further insulin therapy - If these glycemic goals are not met, plan to discharge on bedtime NPH insulin (most affordable for self-pay patient) at two thirds the dose of his inpatient Lantus, along with full dose daily metformin - Diabetes education for blood glucose monitoring (SMBG), as well as insulin therapy Dispo: Possible discharge tomorrow pending stable and well controlled blood glucose on new regimen of insulin. If patient is discharged on Monday 04/[address] Gallardo's office (ENT) in the morning and set the patient up for followup in his clinic for the afternoon of 04/23. If patient still not ready for discharge tomorrow should notify Dr. Gallardo so he can see the patient in the hospital or arrange for further followup. GI Prophylaxis: Not indicated VTE Prophylaxis: Sub-Q Heparin (Unfractionated) VTE Mechanical Devices: Intermittant Pneumatic CD Resuscitation Status: CPR: Attempt Resuscitation (discussed and verified with patient) Didier Marino Apr 22, 2017 11:04
--- NOTE | 2017-04-22 12:18 | PROG NOTE ---
[address] [address] PROGRESS NOTE PATIENT: IZA DEL CASTILLO : 1985 MR#: [id number] ADMIT: 04/17/2017 JOB ID: [id number] DATE: 04/22/2017 INFECTIOUS DISEASE FOLLOWUP NOTE: REASON FOR FOLLOWUP: Significant left neck infection secondary to odontogenic source. INTERVAL HISTORY: Today the patient really seems much improved. He notes there is still some mild pain and a bit of drainage from the [place] drain present in his left neck but he feels better. No fevers, chills, or sweats. He is not having any pulmonary or GI symptoms either. He is currently receiving diabetic teaching as he has been found to be diabetic and is getting started on therapy. PHYSICAL EXAMINATION: Reveals an afebrile, very comfortable young man. Blood pressure 121/81. He is saturating well on room air. He is in no acute distress. Mental status is clear. We were able to speak to him using a metal sheet roller operator. Oral cavity benign. Neck: Ray[place] still dripping out a bit of serosanguineous fluid but less so perhaps than yesterday. There is much less induration along his left lateral neck than there was yesterday and it is almost nontender. Lungs, heart, and abdomen benign. LABORATORIES: Include white count 8400, completely normal diff, and that was on the . We do not have any fresh labs at all on this patient. We do have the culture which grew MSSA and that was now going on six days ago when he was first admitted. IMPRESSION: This patient seems much improved at this point. He has been seen again by ENT and they are in agreement that he can be discharged reasonably soon. We do know that MSSA is part of this infection though it is certainly possible that anaerobes or other organisms are also involved. RECOMMENDATIONS: 1. I would continue on cefazolin and Flagyl as long as he is here in the hospital. 2. At the time of discharge I would transition the patient to Augmentin for about 5-7 more days at a. dose of 875 p.o. b.i.d. To that I would add amoxicillin 1 g p.o. b.i.d. to basically produce a homemade version of the branded drug known as Augmentin XR. 3. Both the amoxicillin and Augmentin should continue for 5-7 days. 4. Followup will be with ENT. 5. Given his steady improvement, Infectious Disease will go ahead and sign off at this time. Thank you very much for this consult.
[2017-04-22 14:46] VITALS: BP 125/87; PULSE 96; RESP 18; O2SAT 97
--- NOTE | 2017-04-22 17:59 | NUR ---
Interp/pain/activity Firepot Operator And Tender present periodically throughout shift to assist. Pt report "a little pain" in neck at start of shift, then denies pain. Declines pain medication. Frequently ambulates in room and hallway with steady gait.
[2017-04-22 21:05] VITALS: BP 142/90; PULSE 80; RESP 20; O2SAT 98
[2017-04-22] MEDS: Insulin Human NPH 100 Unit/mL Syringe SUBQ SCH (21:27)
[2017-04-23] MEDS: Heparin 5,000 Unit/mL Inj SUBQ SCH ×3 (00:20→17:30)
[2017-04-23] MEDS: Sodium Chloride LOK Flush 10 mL Syringe IVFLUSH SCH ×4 (00:20→23:29)
--- NOTE | 2017-04-23 02:31 | NUR ---
Pain Patient states pain in the back of his neck is pretty minimal and he states he doesn't want any pain medication at this time. Patient s vitals stable. Patient able to communicate without paste plant supervisor so far this shift. Rolled up 4x4 dressing changed under Raymundo drain, which is weeping brownish fluid. Patient up independent in room per report, but not up OOB yet this shift.
[2017-04-23] MEDS: CeFAZolin Inj 2 GM in IV Premix 1 EACH IV SCH ×3 (05:09→21:13)
[2017-04-23 05:40] VITALS: BP 118/74; PULSE 80; RESP 20; O2SAT 98
[2017-04-23 06:10] LABS: Magnesium 2.3 mg/dL (1.6-2.6)
[2017-04-23] MEDS: Insulin LISPRO Low-Dose Scale SUBQ SCH ×4 (08:50→22:00)
--- NOTE | 2017-04-23 12:27 | PCM.PNMED ---
Subjective Date of Service Apr 23, 2017 Subjective continues to have significant left jaw pain and swelling.continues to have purulent drainage from surgical drain. Afebrile. Blood glucose controlled but needs more education on insulin and injection techniques. Exam Vital Signs Vital Sign - Last Date Time Temp Pulse Resp B/P Pulse Ox O2 Delivery O2 Flow Rate FiO2 04/23/17 05:40 36.2 80 20 118/74 98 04/22/17 21:05 Room Air 04/17/17 17:09 2.00 Intake and Output 04/22/17 04/22/17 04/23/17 Cumulative From/Thru 14:59 22:59 06:59 04/16/17 19:57 - 04/23/17 05:42 Intake Total 700 ml 1380 ml 154 ml 39308 ml Output Total 675 ml 801 ml 00773 ml Balance 25 ml 579 ml 154 ml 5586 ml Intake Oral 700 ml 1200 ml 76555 ml IV Total 180 ml 154 ml 6537 ml Output Urine Total 675 ml 800 ml 86690 ml Emesis 1 ml 1 ml Estimated Blood Loss 20 ml # Voids 2 8 # Bowel Movements 1 4 Exam General: Alert, No Acute Distress Head: Normal Eyes: Scleral Anicteric Nose: Mucous Membr Moist/[place] Mouth: Mucous Membr Moist/[place] Neck: Supple, Tenderness, dressing and drain in place. Purulent discharge from drain Chest & Lungs: Chest Wall Normal, Clear to auscultation bilat Cardiovascular: Regular Rate/Rhythm Abdomen: Non-tender, Non-distended, Normoactive bowel tones, Soft Extremities: No cyanosis/clubbing/edema bilat Skin: Other (no significant ulcer/rash other than the neck) Neurological: Grossly Neurologically Intact, Normal Speech IVs and Medications Medications Reviewed: Medications were reviewed in detail Lab and Diagnostics Result Diagram: 04/20/17 0748 04/23/17 0520 X-Rays, CTs and MRIs Date of Service: 04/17/17 0015 PROCEDURE: CT NECK SOFT TISSUES WITH CONTRAST ([id number]) IMPRESSION: 1. 3.9 x 3.5 x 3.5 cm solid and cystic left neck mass lesion with significant surrounding inflammatory fat stranding, consistent with partially necrotic left jugular chain lymph node and developing abscess. 2. Multiple additional enlarged nonnecrotic left jugular chain lymph nodes as well, presumably from infectious or inflammatory etiology. 3. Asymmetric enlargement of the left tonsillar pillar as well, without abscess formation. Dictated by: Cristino Bedoya M.D. on 04/17/2017 at 8:50 Approved by: Cristino Bedoya M.D. on 04/17/2017 at 9:01 Additional Diagnostics SURGEON: Eduardo Gallardo MD PREOPERATIVE DIAGNOSIS(ES): Left deep neck abscess. POSTOPERATIVE DIAGNOSIS(ES): Left deep neck abscess. PROCEDURE: Incision and drainage. ESTIMATED BLOOD LOSS: Less than 20 cc. PATHOLOGIC SPECIMENS: Cultures are sent. Eduardo Gallardo MD 04/17/17 1249 Assessment & Plan 31 year-old generally healthy male who is post left lower wisdom tooth extraction about 6 weeks ago presents with somewhat acute onset of left neck swelling and tenderness with imaging suggestive of developing neck abscess # Acute left neck abscess s/p I&D on 04/17, present on admission. - Presumably as a complication of tooth extraction about 4 weeks earlier - Post incision and drainage of abscess by ENT on 04/17/17 - Appreciate ENT consult. Will followup with recs - Wound cultures growing MSSA - Initially on IV Zosyn and Clinda but changed to IV Vanco on 04/18/17 given preliminary cultures showing possible Staph. Then changed to Cefazolin and Flagyl on 04/19 per ID recs. Augmentin 875 po bid and amoxicillin 1 g by mouth twice a day for 1 more week upon discharge per ID. - Appreciate ID consult. Will followup with recs - Continue with supportive care including IVF and pain control with IV Morphine prn - Prior hospitalist discussed patient's case with Dr. Gallardo on 04/22/17. He recommends that if patient were to be discharged on Monday 04/23 to call his office in the morning and set the patient up for followup in his clinic for the afternoon of 04/23. If patient still not ready for discharge tomorrow should notify Dr. Gallardo so he can see the patient in the hospital. Patient continues to have significant pain and purulent discharge. Also needs more education on diabetes and insulin. Notified Dr. Gallardo office the patient is staying inpatient. # Acute sepsis, present on admission. Clinically resolved. - Met criteria with leukocytosis (17.5), Fever (39.2), Tachycardia (139) with source the neck abscess. - Continue with IVF and Abx as noted above # Acute mild lactic acidosis. present on admission - Resolved with IVF. # Acute leukocytosis. present on admission. Resolved. - Plan as noted above # Acute hyperglycemia and new diagnosis of diabetes mellitus. Present on admission. - Glucose better controlled. - HgA1C 11.1 suggestive of new diagnosis of diabetes mellitus - Appreciate endocrinology consult by Dr. Gonzalez. Will followup with recs - Started on Glargine insulin 20 units at bedtime on 04/19 and increased to 30 units on 04/20. Changed Insulin to NPH 20 units qhs on 04/21 (given NPH more affordable for self-pay patient) - Started metformin 500 mg twice a day on 04/19. Increase to 1000 twice a day if no gastrointestinal intolerance - Per Dr. Gonzalez's recommendations: - 4 times a day capillary blood glucose - Glucose control goals: Random less than 180, fasting less than 140, none less than 70 - If Lantus dose can be titrated to 10 units or less with fasting a.m. blood glucose 100-140 at the time of discharge, then he may go home with no insulin therapy - If Lantus dose is 10-20 units with fasting a.m. blood sugars 100-140, then I would try to initiate glipizide without further insulin therapy - If these glycemic goals are not met, plan to discharge on bedtime NPH insulin (most affordable for self-pay patient) at two thirds the dose of his inpatient Lantus, along with full dose daily metformin - Diabetes education for blood glucose monitoring (SMBG), as well as insulin therapy Dispo: Possible discharge tomorrow pending stable and well controlled blood glucose on new regimen of insulin. New PCP appointment at residency clinic on April 29 GI Prophylaxis: Not indicated VTE Prophylaxis: Sub-Q Heparin (Unfractionated) VTE Mechanical Devices: Intermittant Pneumatic CD Resuscitation Status: CPR: Attempt Resuscitation (discussed and verified with patient) Senthil Morton MD Apr 23, 2017 12:27
[2017-04-23 12:38] VITALS: BP 125/85; PULSE 88; RESP 16; O2SAT 99
--- NOTE | 2017-04-23 17:25 | NUR ---
Assumed Care Assumed care of patient. Report received from José Fonseca RN.
--- NOTE | 2017-04-23 17:41 | NUR ---
Pain Patient states that pain to neck is decreased this shift. Patient declines any pain medication, denies any chest pain, shortness of breath, nausea or other difficulty. Care is ongoing. Addendum: 04/23/17 at 1742 by PATRICE GIORDANO RN Patient ambulating in carias often this shift, tolerating activity well.
[2017-04-23 19:30] VITALS: BP 127/78; PULSE 78; RESP 16; O2SAT 100
[2017-04-23] MEDS: Insulin Human NPH 100 Unit/mL Syringe SUBQ SCH (22:38)
[2017-04-24] MEDS: Heparin 5,000 Unit/mL Inj SUBQ SCH ×3 (01:25→17:04)
--- NOTE | 2017-04-24 02:30 | NUR ---
PAIN; denies need for pain rx when asked. Dressing intact. Up in room independently.
[2017-04-24] MEDS: CeFAZolin Inj 2 GM in IV Premix 1 EACH IV SCH ×3 (04:57→21:00)
[2017-04-24 05:00] VITALS: BP 112/75; PULSE 66; RESP 16; O2SAT 97
[2017-04-24] MEDS: Insulin LISPRO Low-Dose Scale SUBQ SCH ×4 (08:08→21:42)
[2017-04-24] MEDS: Sodium Chloride LOK Flush 10 mL Syringe IVFLUSH SCH ×2 (08:08→16:29)
[2017-04-24 08:26] VITALS: BP 121/82; PULSE 69; RESP 18; O2SAT 98
--- NOTE | 2017-04-24 12:00 | PCM.PNMED ---
Subjective Date of Service Apr 24, 2017 Subjective continues to have left neck pain,swelling and purulent discharge but improving overall. Exam Vital Signs Vital Sign - Last Date Time Temp Pulse Resp B/P Pulse Ox O2 Delivery O2 Flow Rate FiO2 04/24/17 08:26 36.3 69 18 121/82 98 Room Air Intake and Output 04/23/17 04/23/17 04/24/17 Cumulative From/Thru 15:00 23:00 07:00 04/16/17 19:57 - 04/24/17 05:58 Intake Total 620 ml 650 ml 1036 ml 91636 ml Output Total 526 ml 0 ml 650 ml 45043 ml Balance 94 ml 650 ml 386 ml 7715 ml Intake Oral 620 ml 650 ml 1036 ml 43429 ml IV Total 7536 ml Output Urine Total 525 ml 650 ml 61003 ml Emesis 1 ml 0 ml 0 ml 2 ml Estimated Blood Loss 20 ml # Voids 2 10 # Bowel Movements 4 Exam General: Alert, No Acute Distress Head: Normal Eyes: Scleral Anicteric Nose: Mucous Membr Moist/[place] Mouth: Mucous Membr Moist/[place] Neck: Supple, Tenderness, dressing and drain in place. Purulent discharge from drain Chest & Lungs: Chest Wall Normal, Clear to auscultation bilat Cardiovascular: Regular Rate/Rhythm Abdomen: Non-tender, Non-distended, Normoactive bowel tones, Soft Extremities: No cyanosis/clubbing/edema bilat Skin: Other (no significant ulcer/rash other than the neck) Neurological: Grossly Neurologically Intact, Normal Speech IVs and Medications Medications Reviewed: Medications were reviewed in detail Lab and Diagnostics Result Diagram: 04/20/17 0748 04/23/17 0520 X-Rays, CTs and MRIs Date of Service: 04/17/17 0015 PROCEDURE: CT NECK SOFT TISSUES WITH CONTRAST ([id number]) IMPRESSION: 1. 3.9 x 3.5 x 3.5 cm solid and cystic left neck mass lesion with significant surrounding inflammatory fat stranding, consistent with partially necrotic left jugular chain lymph node and developing abscess. 2. Multiple additional enlarged nonnecrotic left jugular chain lymph nodes as well, presumably from infectious or inflammatory etiology. 3. Asymmetric enlargement of the left tonsillar pillar as well, without abscess formation. Dictated by: Cristino Bedoya M.D. on 04/17/2017 at 8:50 Approved by: Cristino Bedoya M.D. on 04/17/2017 at 9:01 Additional Diagnostics SURGEON: Eduardo Gallardo MD PREOPERATIVE DIAGNOSIS(ES): Left deep neck abscess. POSTOPERATIVE DIAGNOSIS(ES): Left deep neck abscess. PROCEDURE: Incision and drainage. ESTIMATED BLOOD LOSS: Less than 20 cc. PATHOLOGIC SPECIMENS: Cultures are sent. Eduardo Gallardo MD 04/17/17 1249 Assessment & Plan 31 year-old generally healthy male who is post left lower wisdom tooth extraction about 6 weeks ago presents with somewhat acute onset of left neck swelling and tenderness with imaging suggestive of developing neck abscess # Acute left neck abscess s/p I&D on 04/17, present on admission. - Presumably as a complication of tooth extraction about 4 weeks earlier - Post incision and drainage of abscess by ENT on 04/17/17 - Appreciate ENT consult. Will followup with recs - Wound cultures growing MSSA - Initially on IV Zosyn and Clinda but changed to IV Vanco on 04/18/17 given preliminary cultures showing possible Staph. Then changed to Cefazolin and Flagyl on 04/19 per ID recs. Augmentin 875 po bid and amoxicillin 1 g by mouth twice a day for 1 more week upon discharge per ID. - Appreciate ID consult. Will followup with recs - Continue with supportive care including IVF and pain control with IV Morphine prn - Prior hospitalist discussed patient's case with Dr. Gallardo on 04/22/17. He recommends that if patient were to be discharged on Monday 04/23 to call his office in the morning and set the patient up for followup in his clinic for the afternoon of 04/23. If patient still not ready for discharge tomorrow should notify Dr. Gallardo so he can see the patient in the hospital. Patient continues to have significant pain and purulent discharge. Also needs more education on diabetes and insulin. Notified Dr. Gallardo office the patient is staying inpatient. # Acute sepsis, present on admission. Clinically resolved. - Met criteria with leukocytosis (17.5), Fever (39.2), Tachycardia (139) with source the neck abscess. - Continue Abx as noted above # Acute mild lactic acidosis. present on admission - Resolved with IVF. # Acute leukocytosis. present on admission. Resolved. - Plan as noted above # Acute hyperglycemia and new diagnosis of diabetes mellitus. Present on admission. - Glucose better controlled. - HgA1C 11.1 suggestive of new diagnosis of diabetes mellitus - Appreciate endocrinology consult by Dr. Gonzalez. Will followup with recs - Started on Glargine insulin 20 units at bedtime on 04/19 and increased to 30 units on 04/20. Changed Insulin to NPH 20 units qhs on 04/21 (given NPH more affordable for self-pay patient) - Started metformin 500 mg twice a day on 04/19. Increase to 1000 twice a day if no gastrointestinal intolerance - Per Dr. Gonzalez's recommendations: - 4 times a day capillary blood glucose - Glucose control goals: Random less than 180, fasting less than 140, none less than 70 - If Lantus dose can be titrated to 10 units or less with fasting a.m. blood glucose 100-140 at the time of discharge, then he may go home with no insulin therapy - If Lantus dose is 10-20 units with fasting a.m. blood sugars 100-140, then I would try to initiate glipizide without further insulin therapy - If these glycemic goals are not met, plan to discharge on bedtime NPH insulin (most affordable for self-pay patient) at two thirds the dose of his inpatient Lantus, along with full dose daily metformin - Diabetes education for blood glucose monitoring (SMBG), as well as insulin therapy Dispo: Possible discharge tomorrow New PCP appointment at residency clinic on April 29 GI Prophylaxis: Not indicated VTE Prophylaxis: Sub-Q Heparin (Unfractionated) VTE Mechanical Devices: Intermittant Pneumatic CD Resuscitation Status: CPR: Attempt Resuscitation (discussed and verified with patient) Senthil Morton MD Apr 24, 2017 12:00
[2017-04-24 16:45] VITALS: BP 127/85; PULSE 72; RESP 18; O2SAT 99
--- NOTE | 2017-04-24 17:14 | NUR ---
Social Work: Readiness for Discharge/Multidisciplinary Rounds D: EMR reviewed. Pt is on day 7 of hospitalization. Pt discussed in multidisciplinary rounds, pt is not medically stable at this time, anticipate discharge tomorrow. COLLINS updated MD that pt will need the lowest cost rx available at discharge. MD confirmed pt to discharge on PO Augmentin. MD updated on costs for generic insulin vial costs, test strip costs, glucometer costs, and syringe costs through [facility]. Most of these items are available over the counter. MD provided with the following information: Reli ON , Novlin N , Novlin R . On 04/20, SW spoke with pt at bedside regarding discharge plan and diabetes management supplies. Explained costs through [facility] and provided pt with $4 med list in [place] for future reference. Explained residency clinic appointment scheduled for April 29, pt is agreeable to this appointment. Explained that pt's AEM would only cover emergent inpatient stays, provided [place] director financial services application to pt and explained process. Pt agreeable and aware that he will have an out of pocket cost associated with medications. Pt confirms that his family will transport home from the hospital. Pt declines any additional questions or discharge planning needs. SW will continue to follow. A: Pt who is independent at baseline with ADLs and self-care P: Pt anticipated to discharge home with his family to transport via POV. Pt will have to pay for diabetes supplies and insulin out of pocket. Pt is aware of director financial services application. Pt agreeable to residency clinic follow up. SW will continue to follow for discharge planning needs. ALL Gaston
--- NOTE | 2017-04-24 18:41 | NUR ---
Activity, Pain, Dressing Change, Insulin Education Patient continues to deny pain or pain medications this shift, stating that pain is at a tolerable level. Patient ambulating in room this shift without difficulty. Dressing changed x1 this shift. Patient given instruction and teaching regarding insulin administration when insulin administrated this shift. Care is ongoing.
[2017-04-24 20:32] VITALS: BP 125/85; PULSE 70; RESP 18; O2SAT 98
[2017-04-24] MEDS: Insulin Human NPH 100 Unit/mL Syringe SUBQ SCH ×2 (21:00→21:41)
[2017-04-25] MEDS: Sodium Chloride LOK Flush 10 mL Syringe IVFLUSH SCH ×2 (01:04→08:30)
[2017-04-25] MEDS: Heparin 5,000 Unit/mL Inj SUBQ SCH ×2 (01:05→10:16)
[2017-04-25 05:46] VITALS: BP 117/79; PULSE 71; RESP 18; O2SAT 98
[2017-04-25] MEDS: CeFAZolin Inj 2 GM in IV Premix 1 EACH IV SCH (06:10)
[2017-04-25] MEDS: Insulin LISPRO Low-Dose Scale SUBQ SCH ×2 (08:00→12:00)
[2017-04-25 08:43] LABS: BASOPHILS % (AUTO) 0.4 % (0-3); EOSINOPHILS % (AUTO) 1.3 % (0-5); MONOCYTES % (AUTO) 9.6 % (4-12); Mean Corpuscular Hemoglobin 28.9 pg (27.0-35.0); Mean Corpuscular Volume 84.4 fL (81-100); NEUTROPHILS % (AUTO) 59.3 % (40-74); Platelet Count 341 bil/L (150-400)
[2017-04-25 08:58] LABS: Magnesium 2.4 mg/dL (1.6-2.6); Phosphorus 4.1 mg/dL (2.5-4.9)
--- NOTE | 2017-04-25 10:48 | NUR ---
Social Work: Discharge/Multidisciplinary Rounds D: EMR reviewed. Pt is on day 8 of hospitalization. Pt discussed in multidisciplinary rounds, pt is medically stable for discharge home today. COLLINS updated MD that pt will need the lowest cost rx available at discharge. MD confirmed pt to discharge on PO Augmentin. MD updated on costs for generic insulin vial costs, test strip costs, glucometer costs, and syringe costs through [facility]. Most of these items are available over the counter. MD provided with the following information: Reli ON , Novlin N , Novlin R . On 04/20, SW spoke with pt at bedside regarding discharge plan and diabetes management supplies. Explained costs through [facility] and provided pt with $4 med list in [place] for future reference. Explained residency clinic appointment scheduled for April 29, pt is agreeable to this appointment. Explained that pt's AEM would only cover emergent inpatient stays, provided [place] financial administrator application to pt and explained process. Pt agreeable and aware that he will have an out of pocket cost associated with medications. Pt confirms that his family will transport home from the hospital. Pt declines any additional questions or discharge planning needs. A: Pt who is independent at baseline with ADLs and self-care P: Pt to discharge home with his family to transport via POV. MD requested SW have [facility] schedule outpt ENT appointment with Dr. Gallardo. COLLINS updated [facility] - ENT closed today, [facility] will schedule and follow-up with pt tomorrow. Pt will have to pay for diabetes supplies and insulin out of pocket. Pt is aware of financial administrator application. Pt agreeable to residency clinic follow up. COLLINS will continue to follow for discharge planning needs. ALL Gaston
--- NOTE | 2017-04-25 11:13 | PCM.DIMED ---
Discharge Instructions Date of Service Apr 25, 2017 Dates of Hospitalization Apr 17, 2017 at 04:04 Discharge Diagnosis Discharge Diagnosis # Acute left neck abscess s/p I&D on 04/17, present on admission. - s/p incision and drainage of abscess by ENT on 04/17/17 # Acute sepsis, present on admission. Clinically resolved. # Acute hyperglycemia and new diagnosis of diabetes mellitus. Present on admission. # Abnormal liver function test due to medication side effect. Diet Discharge Diet: Diabetic Activity Discharge Activity: Limited until seen by PCP Call your provider Call your provider for: Fever or Chills, Shortness of breath, Bleeding, Chest pain, Vomitting, Excessive diarrhea, Weakness (unilateral) Patient Instructions Patient Instructions # You were hospitalized left neck abscess presumed to be as a consequence of prior dental extraction. You underwent incision and drainage. Drain is left in place. Please follow-up with wound care clinic for dressing change every other day. Please follow-up with ENT in 1 week . collar worker will try to get you the appointment and will call you tomorrow . please call tomorrow/Wednesday afternoon if you don't hear from manager social. # You are newly diagnosed with diabetes. Please take insulin NPH ( Novolin N ) 17 units at bedtime and metformin 500 mg twice daily. Please check blood glucose 3 times a day for the next 1 week and log blood glucose. Please follow- up with PCP at [facility] residency clinic on April 29. Please discuss with resident physician about blood glucose log and further insulin dose adjustment. # You are noted have slightly abnormal liver function test on day of discharge. It seems to be due to antibiotics used in patient ( cefazolin and metronidazole) . These antibiotics are switched to amoxicillin and Augmentin upon discharge. Please ask your PCP/resident physician to check liver function test on April 29. Follow-up Provider: [facility] Residency Clinic Follow-up with PCP in: 1 week (apr 29) Provider: Eduardo Gallardo MD Follow-up in: 1 week Mid-level Provider (F9): [facility] Follow-up with Mid-level in: 1 week Senthil Morton MD Apr 25, 2017 11:13
[2017-04-25] MEDS ORDERED: AMOX-366 PO (11:27)
[2017-04-25] MEDS ORDERED: METF500T PO (11:27)
[2017-04-25] MEDS ORDERED: HYDR-4003 PO (11:27)
[2017-04-25] MEDS ORDERED: AMOX500T2 PO (11:27)
[2017-04-25] MEDS ORDERED: NPH,100V10 SUBQ (11:27)
[2017-04-25] MEDS ORDERED: SYRI-1324 MC (11:32)
[2017-04-25] MEDS ORDERED: BLOO-438 MC (11:32)
--- NOTE | 2017-04-25 13:34 | NUR ---
Discharge All discharge teaching and instructions done with canvas goods supervisor on a stick at bedside. Diabetic teaching and insulin administration teaching done with pt at bedside. Pt to check blood glucose 3x/day and take a journal of his blood sugars. Pt teaching on subcutaneous insulin administration done with pt. Teaching done with pt on antibiotic use. Pt to take all RX until dose is complete. Pt to f/u with [facility] residency clinic for Liver function test and management of diabetes. Pt to f/u with ENT. SW to call pt tomorrow with ENT apt date and time. All care notes given to pt in Japanese. IV d/c'd intact. No items in the safe or pharmacy. All questions and concerns discussed with pt at bedside with canvas goods supervisor. Extra supplies given for pt to change dressings as needed. Dressing change done today. COLLINS made apt for 04/29/17 at 0815 with [facility] Residency clinic.
--- NOTE | 2017-04-25 16:53 | PCM.DC.MED ---
Discharge Summary Date of Service Apr 25, 2017 Dates of Hospitalization Date of Hospital Admission Apr 17, 2017 at 04:04 Date of Discharge: Apr 25, 2017 Providers: Admitting Physician: Garrick Hassan MD Primary Care Physician: Nopcp Attending Physician: Senthil Jackson MD Diagnosis at Time of Discharge Diagnosis at Time of Discharge # Acute left neck abscess s/p I&D on 04/17, present on admission. - s/p incision and drainage of abscess by ENT on 04/17/17 # Acute sepsis, present on admission. Clinically resolved. # Acute hyperglycemia and new diagnosis of diabetes mellitus. Present on admission. # Abnormal liver function test due to medication side effect. Consultations ID Dr Arambula ENT Dr Gallardo Procedures XRay, CTs & MRIs Date of Service: 04/17/17 0015 PROCEDURE: CT NECK SOFT TISSUES WITH CONTRAST ([id number]) IMPRESSION: 1. 3.9 x 3.5 x 3.5 cm solid and cystic left neck mass lesion with significant surrounding inflammatory fat stranding, consistent with partially necrotic left jugular chain lymph node and developing abscess. 2. Multiple additional enlarged nonnecrotic left jugular chain lymph nodes as well, presumably from infectious or inflammatory etiology. 3. Asymmetric enlargement of the left tonsillar pillar as well, without abscess formation. Dictated by: Cristino Bedoya M.D. on 04/17/2017 at 8:50 Approved by: Cristino Bedoya M.D. on 04/17/2017 at 9:01 Other Diagnostics SURGEON: Eduardo Gallardo MD PREOPERATIVE DIAGNOSIS(ES): Left deep neck abscess. POSTOPERATIVE DIAGNOSIS(ES): Left deep neck abscess. PROCEDURE: Incision and drainage. ESTIMATED BLOOD LOSS: Less than 20 cc. PATHOLOGIC SPECIMENS: Cultures are sent. Eduardo Gallardo MD 04/17/17 1249 Brief History per HPI The patient was in his usual state of health, when he noticed increased swelling or local pain on the left side of his neck over the past week. This is his first episode of acute soft tissue infection. On review of systems: He has not had recent change in weight. He drinks water regularly but has not had recent polydipsia. He does not note change in urinary frequency. He has had episodes of visual blurring, mostly at nighttime. Otherwise no visual problems. He does endorse recent dry mouth. He has no symptoms of peripheral neuropathy. His father has diabetes, although recently discontinued insulin. He has 9 brothers and sisters none of whom have diabetes. Hospital Course 31 year-old generally healthy male who is post left lower wisdom tooth extraction about 6 weeks ago presents with somewhat acute onset of left neck swelling and tenderness with imaging suggestive of developing neck abscess # Acute left neck abscess s/p I&D on 04/17, present on admission. - Presumably as a complication of tooth extraction about 4 weeks earlier - s/p incision and drainage of abscess by ENT on 04/17/17 - Wound cultures growing MSSA - Initially on IV Zosyn and Clinda but changed to IV Vanco on 04/18/17 given preliminary cultures showing possible Staph. Then changed to Cefazolin and Flagyl on 04/19 per ID recs. Augmentin 875 po bid and amoxicillin 1 g by mouth twice a day for 1 more week upon discharge per ID. - Prior hospitalist discussed patient's case with Dr. Gallardo on 04/22/17. He recommends that if patient were to be discharged on Monday 04/23 to call his office in the morning and set the patient up for followup in his clinic for the afternoon of 04/23. -SW will reschedule his missed Wednesday appointment with Dr Gallardo tomorrow and call patient .advised patient to call floor SW if he did not hear from us by tomorrow # acute liver dysfunction -due to cephalosporin/keflex and flagyl -discontinued cefazolin and flagyl and discharged on amoxacillin and Augmentin -advised to get repeat LFTs next week on Apr 29 when he comes to [facility] for follow up # Acute sepsis, present on admission. Clinically resolved. - Met criteria with leukocytosis (17.5), Fever (39.2), Tachycardia (139) with source the neck abscess. - Continue Abx as noted above # Acute mild lactic acidosis. present on admission - Resolved with IVF. # Acute hyperglycemia and new diagnosis of diabetes mellitus. Present on admission. - Glucose better controlled. - HgA1C 11.1 suggestive of new diagnosis of diabetes mellitus - Started on Glargine insulin 20 units at bedtime on 04/19 and increased to 30 units on 04/20. Changed Insulin to NPH 20 units qhs on 04/21 (given NPH more affordable for self-pay patient).Discharged on NPH 17 Units HS .prescribed glucometer ,insulin syringes .Novolin N ( cost $ 24 per vial at [facility] ) - Started metformin 500 mg twice a day on 04/19. Increase to 1000 twice a day if no gastrointestinal intolerance.may do so after seeing PCP discharged home New PCP appointment at residency clinic on April 29 f/u with Dr Gallardo ENT in 1 week . advised to come to wound care clinic if unable to see ENT in 1 week Exam Vital Signs (Last) Date Time Temp Pulse Resp B/P Pulse Ox O2 Delivery O2 Flow Rate FiO2 04/25/17 05:46 36.5 71 18 117/79 98 Room Air Exam General: Alert, No Acute Distress Head: Normal Eyes: Scleral Anicteric Nose: Mucous Membr Moist/[place] Mouth: Mucous Membr Moist/[place] Neck: Supple, Tenderness, dressing and drain in place. Purulent discharge from drain Chest & Lungs: Chest Wall Normal, Clear to auscultation bilat Cardiovascular: Regular Rate/Rhythm Abdomen: Non-tender, Non-distended, Normoactive bowel tones, Soft Extremities: No cyanosis/clubbing/edema bilat Skin: Other (no significant ulcer/rash other than the neck) Neurological: Grossly Neurologically Intact, Normal Speech Test 04/17/17 00:17 04/17/17 06:46 04/17/17 08:38 04/19/17 04:45 Hold [place] Top Tube Received (Received) Hemoglobin A1c 11.1% (4.8-5.6) Streptozyme 24.0IU/mL (0.0-200.0) Lactic Acid Level 1.3mmol/L (0.4-2.0) Procalcitonin 0.24ng/mL (0.00-0.08) Test 04/25/17 08:15 White Blood Count 7.6th/mm3 (3.8-10.1) Red Blood Count 5.26mil/mm3 (4.40-5.80) Hemoglobin 15.2g/dL (13.8-17.2) Hematocrit 44.4% (41.0-50.0) Mean Corpuscular Volume 84.4fL (81-100) Mean Corpuscular Hemoglobin 28.9pg (27.0-35.0) Mean Corpuscular Hemoglobin Concent 34.2% (32.0-37.0) Red Cell Distribution Width 12.5% (12.3-15.4) Platelet Count 341bil/L (150-400) Neutrophils (%) (Auto) 59.3% (40-74) Lymphocytes (%) (Auto) 29.0% (14-46) Monocytes (%) (Auto) 9.6% (4-12) Eosinophils (%) (Auto) 1.3% (0-5) Basophils (%) (Auto) 0.4% (0-3) Sodium Level 135mEq/L (134-144) Potassium Level 4.5mEq/L (3.5-5.2) Chloride Level 99mEq/L (97-108) Carbon Dioxide Level 24mmol/L (18-29) Blood Urea Nitrogen 11mg/dL (6-20) Creatinine 0.66mg/dL (0.76-1.27) Estimat Glomerular Filtration Rate 151mL/min (>59) Glucose Level 97mg/dL (60-99) Calcium Level 9.5mg/dL (8.5-10.1) Phosphorus Level 4.1mg/dL (2.5-4.9) Magnesium Level 2.4mg/dL (1.6-2.6) Total Bilirubin 0.3mg/dL (0.0-1.2) Aspartate Amino Transf (AST/SGOT) 112U/L (0-50) Alanine Aminotransferase (ALT/SGPT) 117U/L (0-44) Alkaline Phosphatase 95U/L (25-150) Total Protein 7.9g/dL (6.4-8.4) Albumin 3.9g/dL (3.4-5.0) Discharge Medications Discharge Medications Amoxicillin (Amoxicillin) 500 Mg Tablet 1,000 MG PO BID Prescribed by: SENTHIL JACKSON MD Amoxicillin/Clav K 875-125 mg (Augmentin 875-125 mg) 1 Each Tablet 1 TABLET PO BID Prescribed by: SENTHIL JACKSON MD Metformin (Glucophage) 500 Mg Tablet 500 MG PO BID Prescribed by: SENTHIL JACKSON MD NPH, Human Insulin Isophane (Novolin-N U100 Insulin Vial) 100 Unit/1 Ml Vial 17 UNIT SUBQ HS Prescribed by: SENTHIL JACKSON MD As needed Hydrocodone-Acetaminophen 5-325 mg (Hydrocodone-Acetaminophen 5-325 mg) 1 Each Tablet 1-2 TABLET PO Q4H PRN PRN For Pain Prescribed by: SENTHIL JACKSON MD [employer] Blood Glucose Control High&Low (Accutrend Glucose Control) 1 Each Each 1 EACH [facility] (DME) Prescribed by: SENTHIL JACKSON MD Syring W-O Ndl,Disp,Insul, 1Ml (Insulin Syringe) 1 Each Disp.syrin 1 EACH [facility] ( DME) Prescribed by: SENTHIL JACKSON MD Followup Plan Disposition: home Discharge Diet: Diabetic Discharge Activity: Limited until seen by PCP Patient Instructions # You were hospitalized left neck abscess presumed to be as a consequence of prior dental extraction. You underwent incision and drainage. Drain is left in place. Please follow-up with wound care clinic for dressing change every other day. Please follow-up with ENT in 1 week . line out worker will try to get you the appointment and will call you tomorrow . please call tomorrow/Wednesday afternoon if you don't hear from director of social work. # You are newly diagnosed with diabetes. Please take insulin NPH ( Novolin N ) 17 units at bedtime and metformin 500 mg twice daily. Please check blood glucose 3 times a day for the next 1 week and log blood glucose. Please follow- up with PCP at [facility] residency clinic on April 29. Please discuss with resident physician about blood glucose log and further insulin dose adjustment. # You are noted have slightly abnormal liver function test on day of discharge. It seems to be due to antibiotics used in patient ( cefazolin and metronidazole) . These antibiotics are switched to amoxicillin and Augmentin upon discharge. Please ask your PCP/resident physician to check liver function test on April 29. Follow-up Provider: [facility] Follow-up with PCP in: 1 week (apr 29) Provider: Eduardo Gallardo MD Follow-up in: 1 week Mid-level Provider: [facility] Follow-up with Mid-level in: 1 week Time spent 40 minutes coordinating discharge copies to: Eduardo Gallardo MD; [facility]; Senthil Jackson MD, Melaku MD Apr 25, 2017 16:53
== END 2017-04-25 14:15 | disposition home or self-care (01) | DRG 872 ==
LOC: SED 19:52 → OSC 04-17 04:04
PROVIDERS: ADMIT Hospitalist; ATTEND Internal Medicine
PROC: 0J940ZX Drainage of Right Neck Subcutaneous Tissue and Fascia, Open Approach, Diagnostic (ICD-10-PCS; principal; 2017-04-17 11:30)
DX: A41.9 Sepsis, unspecified organism (principal); L02.11 Cutaneous abscess of neck; E87.2 Acidosis; R25.2 Cramp and spasm; F17.210 Nicotine dependence, cigarettes, uncomplicated; E11.65 Type 2 diabetes mellitus with hyperglycemia; B95.61 Methicillin susceptible Staphylococcus aureus infection as the cause of diseases classified elsewhere; R94.5 Abnormal results of liver function studies; T36.1X5A Adverse effect of cephalosporins and other beta-lactam antibiotics, initial encounter; T37.8X5A Adverse effect of other specified systemic anti-infectives and antiparasitics, initial encounter; Y92.230 Patient room in hospital as the place of occurrence of the external cause